=== PATIENT | female | born 1980 | race African-American/Black ===

== ENCOUNTER 2016-09-02 15:55 | Emergency (ER) | payer MEDICAID ==
[~2016-09-02] VITALS: Ht 167.6 cm; Wt 78.5 kg
[2016-09-02 15:55] VITALS: BP 117/79
[~2016-09-02 15:55] MED LIST: ALBU17IN2 INH; DRIS50002 PO; ESCI10TA2 PO; FERR325T PO; GABA-279 PO; GABA300C3 PO; HUMI40KI2 SC; HYDRO50TAB PO; KEPP500T6 PO; LIDO5TD TD; LOW-TAB2 PO; MEDR5TAB3 PO; NEUR300C PO; PANT40TA2 PO; PERCOCET PO; ROBA750T4 PO; SENN1TAB2 PO; SERO400T PO; TRAZ10TA PO; XANA1TAB2 PO
[2016-09-02] MEDS ORDERED: TRAZ100T4 PO (16:37)
== END 2016-09-02 17:22 | disposition left against medical advice (07) ==
LOC: M ED 16:56
DX: M54.9 Dorsalgia, unspecified (principal); Z88.5 Allergy status to narcotic agent; Z88.0 Allergy status to penicillin; Z88.2 Allergy status to sulfonamides; Z88.8 Allergy status to other drugs, medicaments and biological substances; Z79.899 Other long term (current) drug therapy; G43.909 Migraine, unspecified, not intractable, without status migrainosus; J45.909 Unspecified asthma, uncomplicated; Z87.442 Personal history of urinary calculi; Z87.440 Personal history of urinary (tract) infections; D64.9 Anemia, unspecified; M32.9 Systemic lupus erythematosus, unspecified; F32.9 Major depressive disorder, single episode, unspecified; F40.9 Phobic anxiety disorder, unspecified; N93.9 Abnormal uterine and vaginal bleeding, unspecified; Z53.29 Procedure and treatment not carried out because of patient's decision for other reasons

== ENCOUNTER → 2016-09-23 | Outpatient (CLI) | payer MEDICAID ==
[~2016-09-23] MED LIST changes: +ADDE30CA PO; +GABA-282 PO; -GABA300C3 PO; +NORC7.5T PO; +TRAZ100T4 PO
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
== END ==
LOC: M PAIN 08:40
PROVIDERS: ATTEND Nurse Practitioner Family
DX: Z09 Encounter for follow-up examination after completed treatment for conditions other than malignant neoplasm (principal); G89.29 Other chronic pain; M51.26 Other intervertebral disc displacement, lumbar region; D50.9 Iron deficiency anemia, unspecified; F31.9 Bipolar disorder, unspecified; M32.9 Systemic lupus erythematosus, unspecified; F41.9 Anxiety disorder, unspecified; G40.909 Epilepsy, unspecified, not intractable, without status epilepticus; Z88.0 Allergy status to penicillin; Z88.2 Allergy status to sulfonamides; Z91.040 Latex allergy status; Z88.6 Allergy status to analgesic agent; Z88.5 Allergy status to narcotic agent; Z79.891 Long term (current) use of opiate analgesic; Z79.899 Other long term (current) drug therapy

== ENCOUNTER 2016-09-25 17:33 | Emergency (ER) | payer MEDICAID ==
[~2016-09-25 17:33] MED LIST changes: -ADDE30CA PO; -NORC7.5T PO
[2016-09-25] MEDS ORDERED: ADDE30CA PO (17:54)
[2016-09-25] MEDS ORDERED: XANA1TAB2 PO (17:54)
[2016-09-25] MEDS ORDERED: NORC7.5T PO (17:54)
--- NOTE | 2016-09-25 18:41 | ECGEPIP ---
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
[2016-09-25 18:44] LABS: MEAN CORPUSCULAR HGB CONC 27.5 g/dl (32.0-36.5); MEAN CORPUSCULAR VOLUME 87.2 fl (80.0-96.0); RED CELL DISTRIBUTION WIDTH 14.7 % (11.5-14.5)
[2016-09-25 18:58] LABS: CONTROL LINE HCG INT CTR LINE PRESENT
[2016-09-25 19:15] LABS: ALBUMIN 3.4 GM/DL (3.2-5.2); ALBUMIN/GLOBULIN RATIO 0.72 (1.00-1.93); ALKALINE PHOSPHATASE 119 U/L (45-117); ALT/SGPT 16 U/L (12-78); ANION GAP 10 MEQ/L (8-16); AST/SGOT 14 U/L (15-37); BILIRUBIN,DIRECT < 0.1 MG/DL (0.0-0.2); BILIRUBIN,TOTAL 0.1 MG/DL (0.2-1.0); BLOOD UREA NITROGEN 10 MG/DL (7-18); CALCIUM LEVEL 8.3 MG/DL (8.5-10.1); CARBON DIOXIDE LEVEL 24 MEQ/L (21-32); CHLORIDE LEVEL 109 MEQ/L (98-107); CREATININE FOR GFR 0.75 MG/DL (0.55-1.02); GLOMERULAR FILTRATION RATE > 60.0 (>60); GLUCOSE, FASTING 90 MG/DL (70-105); POTASSIUM SERUM 3.6 MEQ/L (3.5-5.1); SODIUM LEVEL 143 MEQ/L (136-145); TOTAL PROTEIN 8.1 GM/DL (6.4-8.2)
[2016-09-25 20:36] LABS: METHADONE URINE NEGATIVE (NEGATIVE)
[2016-09-25 21:48] VITALS: BP 126/79
== END 2016-09-25 21:52 | disposition home or self-care (01) ==
LOC: M ED 18:25
DX: F19.10 Other psychoactive substance abuse, uncomplicated (principal); M32.9 Systemic lupus erythematosus, unspecified; F31.9 Bipolar disorder, unspecified; F20.9 Schizophrenia, unspecified; G40.909 Epilepsy, unspecified, not intractable, without status epilepticus; M54.9 Dorsalgia, unspecified; Z88.5 Allergy status to narcotic agent; Z91.040 Latex allergy status; Z88.0 Allergy status to penicillin; Z88.2 Allergy status to sulfonamides; Z88.8 Allergy status to other drugs, medicaments and biological substances; Z88.6 Allergy status to analgesic agent; Z79.899 Other long term (current) drug therapy; Z98.84 Bariatric surgery status; R51 Headache; J45.909 Unspecified asthma, uncomplicated
CPT/HCPCS: 36415; 80048; 80076; 80306; 84443; 84703; 85027; 93005; 93041; 99284; G0480

== ENCOUNTER 2016-11-24 09:42 | Emergency (ER) | payer MEDICAID, OTHER ==
[~2016-11-24] VITALS: Ht 167.6 cm; Wt 85.3 kg
[~2016-11-24 09:42] MED LIST changes: +ADDE30CA PO; +NORC7.5T PO
[2016-11-24] MEDS ORDERED: HYDR-4274 PO (09:54)
[2016-11-24] MEDS ORDERED: OLAN10TA2 PO (09:54)
[2016-11-24] MEDS ORDERED: TYLE325T5 PO (09:54)
[2016-11-24] MEDS ORDERED: NEUR300C PO (09:54)
[2016-11-24] MEDS ORDERED: LEXA1TAB2 PO (09:54)
[2016-11-24] MEDS ORDERED: levETIRAcetam INJection 1,000 MG in D5W 100 ML IV ONE (10:45)
--- NOTE | 2016-11-24 10:58 | REP ---
CT Head without contrast HISTORY: Trauma COMPARISON: 01/16/2016 There is no intraparenchymal hemorrhage, acute infarct, mass or midline shift. The ventricular system is normal in appearance. There is no extra cerebral collection. There is no fracture. The visualized sinuses are clear. IMPRESSION: There is no intracranial lesion. Signed by Dominic Mcclellan MD 11/24/2016 10:50 A
--- NOTE | 2016-11-24 13:11 | REP ---
CT CERVICAL SPINE WITHOUT CONTRAST: HISTORY: Trauma. There is no acute fracture or subluxation. There is no disc bulge or herniation. The spinal canal and the neural foramina are patent. The intervertebral discs are normal in height. A 10 mm hypodensity is present in the left thyroid lobe. This may represent a cyst. IMPRESSION: 1. There is no acute fracture or subluxation. 2. There is a 10 mm hypodensity in the left thyroid lobe. This may represent a cyst. Ultrasound may be helpful for further evaluation. Signed by Dominic Mcclellan MD 11/24/2016 01:34 P
[2016-11-24] MEDS ORDERED: KEPP500T6 PO (13:13)
[2016-11-24 13:20] VITALS: BP 110/71
--- NOTE | 2016-11-28 15:26 | ED PDOC ---
Post-Departure Follow-Up pt sent certitied letter re ct c spine and findings. Delia Keyes MD Nov 28, 2016 15:26
== END 2016-11-24 13:25 | disposition home or self-care (01) ==
LOC: M ED 10:36
DX: Z76.5 Malingerer [conscious simulation] (principal); G40.909 Epilepsy, unspecified, not intractable, without status epilepticus; F17.210 Nicotine dependence, cigarettes, uncomplicated; F19.10 Other psychoactive substance abuse, uncomplicated; F11.10 Opioid abuse, uncomplicated; F10.10 Alcohol abuse, uncomplicated
CPT/HCPCS: 70450; 72125; 96365; 99283; J1953

== ENCOUNTER → 2016-11-30 | Outpatient (REF) | payer OTHER ==
[~2016-11-30] MED LIST changes: +HYDR-4274 PO; +LEXA1TAB2 PO; +OLAN10TA2 PO; +TYLE325T5 PO
[2016-11-30 18:10] LABS: BASO # 0.1 K/mm3 (0.0-0.2); BASO % 1.1 % (0.0-1.0); EOS # 0.1 K/mm3 (0.0-0.50); EOS % 1.3 % (0.0-3.0); LARGE UNSTAINED CELL # 0.1 K/mm3 (0.0-0.4); LARGE UNSTAINED CELL % 1.6 % (0.0-4.0); LYMPH # 1.8 K/mm3 (1.5-4.5); LYMPH % 27.9 % (24.0-44.0); MEAN CORPUSCULAR HEMOGLOBIN 21.1 pg (27.0-33.0); MEAN CORPUSCULAR HGB CONC 28.2 g/dl (32.0-36.5); MONO # 0.2 K/mm3 (0.0-0.8); MONO % 3.6 % (0.0-5.0); NEUTROPHILS # 4.2 K/mm3 (1.8-7.7); NEUTROPHILS % 64.5 % (36.0-66.0); PLATELET COUNT, AUTOMATED 495 k/mm3 (150-450); RED CELL DISTRIBUTION WIDTH 16.2 % (11.5-14.5); WHITE BLOOD COUNT 6.5 K/mm3 (4.0-10.0)
[2016-11-30 18:35] LABS: ADD MORPHOLOGY? YES
[2016-11-30 18:36] LABS: ANISOCYTOSIS 1+; HYPOCHROMASIA 3+; MICROCYTOSIS 1+
[2016-11-30 18:53] LABS: POTASSIUM SERUM 4.3 MEQ/L (3.5-5.1)
== END ==
LOC: M LAB REF 16:18
PROVIDERS: ATTEND Surgery
DX: D50.9 Iron deficiency anemia, unspecified (principal)

== ENCOUNTER 2017-01-11 09:13 | Emergency (ER) | payer OTHER ==
[~2017-01-11] VITALS: Ht 167.6 cm; Wt 91.4 kg
[~2017-01-11 09:13] MED LIST changes: -KEPP1TAB2 PO; -RISP1TAB3 PO; -RISP2TAB3 PO
[2017-01-11] MEDS ORDERED: RISP2TAB3 PO (09:35)
[2017-01-11] MEDS ORDERED: RISP1TAB3 PO (09:35)
--- NOTE | 2017-01-11 11:04 | REP ---
Pelvis and right hip: Pelvis, single AP view: Comparison 01/14/2016. There is no pelvic fracture. There are pelvic calcifications, unchanged, likely phleboliths. Mineralization is normal. Sacroiliac articulations and hip articulations are unremarkable. Impression: No pelvic fracture. Right hip two views: There is no fracture or dislocation. Mineralization joint space are normal. No femoral head deformity. No calcifications or foreign bodies. Impression: Negative right hip. Signed by Loy Mujica MD 01/11/2017 10:55 A
[2017-01-11 11:13] VITALS: BP 118/80
[2017-01-11] MEDS ORDERED: KEPP1TAB2 PO (17:17)
== END 2017-01-11 11:32 | disposition home or self-care (01) ==
LOC: M ED 09:13 → EDBD 09:13 → M ED 11:32
DX: G40.909 Epilepsy, unspecified, not intractable, without status epilepticus (principal); S70.01XA Contusion of right hip, initial encounter; F19.10 Other psychoactive substance abuse, uncomplicated; W18.30XA Fall on same level, unspecified, initial encounter; Y92.018 Other place in single-family (private) house as the place of occurrence of the external cause; Y99.9 Unspecified external cause status; Y93.9 Activity, unspecified; Z88.0 Allergy status to penicillin; Z88.1 Allergy status to other antibiotic agents; Z88.8 Allergy status to other drugs, medicaments and biological substances; Z88.5 Allergy status to narcotic agent; Z88.6 Allergy status to analgesic agent; Z91.040 Latex allergy status; Z79.899 Other long term (current) drug therapy

== ENCOUNTER 2017-01-11 14:10 | Emergency (ER) | payer OTHER ==
[~2017-01-11] VITALS: Ht 167.6 cm; Wt 90.1 kg
[~2017-01-11 14:10] MED LIST changes: +RISP1TAB3 PO; +RISP2TAB3 PO
[2017-01-11 15:01] LABS: BASO % 0.7 % (0.0-1.0); EOS % 0.7 % (0.0-3.0); LARGE UNSTAINED CELL # 0.1 K/mm3 (0.0-0.4); LARGE UNSTAINED CELL % 1.6 % (0.0-4.0); LYMPH # 1.1 K/mm3 (1.5-4.5); LYMPH % 12.8 % (24.0-44.0); MEAN CORPUSCULAR HEMOGLOBIN 23.8 pg (27.0-33.0); MEAN CORPUSCULAR HGB CONC 29.9 g/dl (32.0-36.5); MEAN CORPUSCULAR VOLUME 79.9 fl (80.0-96.0); MONO # 0.4 K/mm3 (0.0-0.8); MONO % 5.3 % (0.0-5.0); NEUTROPHILS % 78.9 % (36.0-66.0); PLATELET COUNT, AUTOMATED 332 k/mm3 (150-450); RED CELL DISTRIBUTION WIDTH 22.3 % (11.5-14.5); WHITE BLOOD COUNT 7.6 K/mm3 (4.0-10.0)
[2017-01-11 15:05] LABS: ADD MORPHOLOGY? YES
[2017-01-11 15:19] LABS: ANION GAP 9 MEQ/L (8-16); BLOOD UREA NITROGEN 10 MG/DL (7-18); CALCIUM LEVEL 8.7 MG/DL (8.5-10.1); CARBON DIOXIDE LEVEL 22 MEQ/L (21-32); CHLORIDE LEVEL 112 MEQ/L (98-107); CREATININE FOR GFR 0.61 MG/DL (0.55-1.02); GLOMERULAR FILTRATION RATE > 60.0 (>60); GLUCOSE, FASTING 103 MG/DL (70-105); POTASSIUM SERUM 3.9 MEQ/L (3.5-5.1); SODIUM LEVEL 143 MEQ/L (136-145)
[2017-01-11 15:24] LABS: ANISOCYTOSIS 2+; HYPOCHROMASIA 1+
[2017-01-11 15:25] LABS: MICROCYTOSIS 1+
[2017-01-11] MEDS ORDERED: levETIRAcetam INJection 1,000 MG in D5W 100 ML IV ONE (16:30)
[2017-01-11] MEDS ORDERED: KEPP1TAB2 PO (17:17)
[2017-01-11 18:04] VITALS: BP 97/70
== END 2017-01-11 18:20 | disposition home or self-care (01) ==
LOC: EDBD 14:10 → M ED 14:10
DX: R56.9 Unspecified convulsions (principal); G89.29 Other chronic pain; M54.9 Dorsalgia, unspecified; F19.10 Other psychoactive substance abuse, uncomplicated; Z88.0 Allergy status to penicillin; Z88.2 Allergy status to sulfonamides; Z88.5 Allergy status to narcotic agent; Z88.6 Allergy status to analgesic agent; Z88.8 Allergy status to other drugs, medicaments and biological substances; Z91.040 Latex allergy status; Z79.899 Other long term (current) drug therapy
CPT/HCPCS: 36415; 80048; 80175; 80180; 82550; 85025; 99284; J1953

== ENCOUNTER → 2017-01-11 | Outpatient (REF) | payer OTHER ==
[~2017-01-11] MED LIST changes: -ADDE30CA PO; +ADDE30CA3 PO; +FERR1TAB8 PO; -FERR325T PO; -HYDR-4274 PO; +HYDR50TA70 PO; +KEPP1TAB PO; +KEPP1TAB2 PO; -KEPP500T6 PO; -NORC7.5T PO; +NORC7.5T35 PO; +RISP1TAB3 PO; +RISP2TAB3 PO; +TRAZ-136 PO; -TRAZ100T4 PO
[2017-01-11 14:03] LABS: POTASSIUM SERUM 4.2 MEQ/L (3.5-5.1)
== END ==
LOC: M LAB REF 13:31
PROVIDERS: ATTEND Surgery
DX: G40.89 Other seizures (principal)

== ENCOUNTER → 2017-02-01 | Outpatient (REF) | payer OTHER ==
[~2017-02-01] MED LIST changes: +KEPP1TAB2 PO
== END ==
LOC: M LAB REF 13:02
PROVIDERS: ATTEND Surgery
DX: Z51.81 Encounter for therapeutic drug level monitoring (principal); Z79.899 Other long term (current) drug therapy

== ENCOUNTER 2017-12-12 10:07 | Emergency (ER) | payer OTHER ==
[2017-12-12] MEDS: diphenhydrAMINE INJ 50MG/ML VIAL (J1200) IV (10:45)
[2017-12-12] MEDS: METOCLOPRAMIDE INJ 10MG/2ML VIAL (J2765) IV (10:45)
[2017-12-12] MEDS: NS 1,000 ML IV (10:45)
[2017-12-12] MEDS: KETOROLAC 30 MG/ML VIAL (J1885) IV (10:45)
[2017-12-12] MEDS: ONDANSETRON 4MG/2ML VIAL (J2405) IV (12:32)
== END 2017-12-12 13:00 | disposition home or self-care (01) ==
LOC: M ED 10:07
DX: S09.90XA Unspecified injury of head, initial encounter (principal); F07.81 Postconcussional syndrome; W10.9XXA Fall (on) (from) unspecified stairs and steps, initial encounter; Y92.099 Unspecified place in other non-institutional residence as the place of occurrence of the external cause; Y93.9 Activity, unspecified; Y99.9 Unspecified external cause status; F31.9 Bipolar disorder, unspecified; Z98.84 Bariatric surgery status
CPT/HCPCS: J1200

== ENCOUNTER 2018-01-27 09:45 | Emergency (ER) | payer OTHER, SELFPAY ==
[2018-01-27] MEDS: methylPREDNISolone INJ 125 MG/2 ML VIAL (J2930) IM (11:31)
[2018-01-27] MEDS: MORPHINE 10 MG/ML 1ML VIAL (J2270) IM (13:56)
== END 2018-01-27 14:57 | disposition home or self-care (01) ==
LOC: M ED 09:45
DX: M51.17 Intervertebral disc disorders with radiculopathy, lumbosacral region (principal); M51.26 Other intervertebral disc displacement, lumbar region; R56.9 Unspecified convulsions; F31.9 Bipolar disorder, unspecified; R51 Headache; J45.909 Unspecified asthma, uncomplicated; Z87.442 Personal history of urinary calculi; Z87.440 Personal history of urinary (tract) infections; Z98.84 Bariatric surgery status; Z88.5 Allergy status to narcotic agent; Z88.0 Allergy status to penicillin; Z88.2 Allergy status to sulfonamides; Z88.8 Allergy status to other drugs, medicaments and biological substances; Z91.040 Latex allergy status; Z79.899 Other long term (current) drug therapy
CPT/HCPCS: J2930

== ENCOUNTER 2018-09-10 20:07 | Emergency (ER) | payer OTHER ==
[~2018-09-10] VITALS: Ht 167.6 cm; Wt 80.9 kg
[~2018-09-10 20:07] MED LIST changes: -DRIS50002 PO; +DRIS50003 PO; +GABA-1171 PO; -GABA-279 PO; -GABA-282 PO; +GABA-843 PO; +LOW-1TAB2 PO; -LOW-TAB2 PO; +MEDR4PAK PO; -PANT40TA2 PO; +PANT40TA3 PO; -TRAZ-136 PO; +TRAZ-163 PO; +ZANA4TAB PO; +ZOFR4TAB14 PO; +[UNRECOGNIZED DRUG - CODE] PO; +[UNRECOGNIZED DRUG - OTHER] PO
[2018-09-10] MEDS ORDERED: IBUP80TA PO (20:14)
[2018-09-10] MEDS ORDERED: KEPP10002 PO (20:29)
[2018-09-10] MEDS ORDERED: CLINDAMYCIN 900 MG in APPROPRIATE DILUENT 1 EA IV ONE (20:45)
[2018-09-10] MEDS ORDERED: NS 1,000 ML IV ONE (20:45)
[2018-09-10 21:03] LABS: BASO # 0.1 10^3/uL (0.0-0.2); BASO % 0.5 % (0.0-1.0); EOS # 0.2 10^3/uL (0.0-0.50); EOS % 1.6 % (0.0-3.0); HEMATOCRIT 28.1 % (36.0-47.0); HEMOGLOBIN 7.6 g/dl (12.0-15.5); LYMPH # 1.3 10^3/uL (1.5-4.5); LYMPH % 12.6 % (24.0-44.0); MEAN CORPUSCULAR HEMOGLOBIN 19.7 pg (27.0-33.0); MEAN CORPUSCULAR VOLUME 72.8 fl (80.0-96.0); MONO % 9.5 % (0.0-5.0); NEUTROPHILS # 7.8 10^3/uL (1.8-7.7); NEUTROPHILS % 75.5 % (36.0-66.0); PLATELET COUNT, AUTOMATED 490 10^3/uL (150-450); RED BLOOD COUNT 3.86 10^6/uL (4.00-5.40); WHITE BLOOD COUNT 10.3 10^3/uL (4.0-10.0)
[2018-09-10 21:39] LABS: BLOOD UREA NITROGEN 11 MG/DL (7-18); C REACTIVE PROTEIN QUANTITATIV 0.94 MG/DL (0.00-0.30); CALCIUM LEVEL 7.7 MG/DL (8.5-10.1); CARBON DIOXIDE LEVEL 25 MEQ/L (21-32); CHLORIDE LEVEL 112 MEQ/L (98-107); CREATININE FOR GFR 0.52 MG/DL (0.55-1.30); GLOMERULAR FILTRATION RATE > 60.0 (>60); GLUCOSE, FASTING 92 MG/DL (70-100); POTASSIUM SERUM 4.1 MEQ/L (3.5-5.1); SODIUM LEVEL 141 MEQ/L (136-145)
[2018-09-10] MEDS ORDERED: ISOVUE-370 76% 125ML VIAL (Q9967 PER ML) As Ordered ONE (21:42)
[2018-09-10] MEDS ORDERED: MORPHINE 4 MG/ML 1ML VIAL/SYRINGE (J2270) IV ONE (22:00)
[2018-09-10] MEDS ORDERED: ONDANSETRON 4MG/2ML VIAL (J2405) IV ONE (22:00)
--- NOTE | 2018-09-10 22:48 | REPVR ---
EXAM: CT Maxillofacial With Contrast EXAM DATE/TIME: 09/10/2018 9:45 PM CLINICAL HISTORY: 38 years old, female; Pain; Jaw pain; Additional info: Dental abscess, left side facial swelling TECHNIQUE: Axial computed tomography images of the face with intravenous contrast. All CT scans at this facility use at least one of these dose optimization techniques: automated exposure control; mA and/or kV adjustment per patient size (includes targeted exams where dose is matched to clinical indication); or iterative reconstruction. Coronal and sagittal reformatted images were created and reviewed. CONTRAST: Contrast Material: 75 ml of ISO 370; Contrast Route: IV COMPARISON: No relevant prior studies available. FINDINGS: Orbits: No acute intraorbital abnormality. Globes are unremarkable. Sinuses: Minimal bilateral maxillary sinus mucosal thickening. Bones/joints: No acute fracture. Dental: Periodontal disease of multiple maxillary and mandibular teeth. There is buccal aspect erosion of anterior mandibular incisors and teeth #22 and 21 and tooth #19 with prominent caries involving multiple teeth. There is a large periodontal lucency around the roots of tooth #31. Lymph nodes: Borderline left submandibular nodes. Soft tissues: Soft tissue edema of the left cheek and left perimandibular soft tissues. IMPRESSION: 1. Prominent scattered periodontal disease and caries bilaterally. 2. Soft tissue edema of the left cheek and left perimandibular soft tissues with borderline left submandibular nodes consistent with inflammation or cellulitis. No definite abscess is identified although some phlegmon may be present. 3. Minimal bilateral maxillary sinus disease. Electronically signed by: Rafael Espinoza On 09/10/2018 22:47:57 PM
[2018-09-10] MEDS ORDERED: NORCO 5/325MG TABLET (BULK FOR ED) PO ONE (23:00)
[2018-09-10] MEDS ORDERED: CLEO300C2 PO (23:03)
[2018-09-10] MEDS ORDERED: NORCOTAB PO (23:03)
[2018-09-10 23:49] VITALS: BP 115/65
== END 2018-09-10 23:51 | disposition home or self-care (01) ==
LOC: M ED 20:07
DX: K04.7 Periapical abscess without sinus (principal); D50.9 Iron deficiency anemia, unspecified; J45.909 Unspecified asthma, uncomplicated; E05.90 Thyrotoxicosis, unspecified without thyrotoxic crisis or storm; G40.909 Epilepsy, unspecified, not intractable, without status epilepticus; F33.9 Major depressive disorder, recurrent, unspecified; F20.9 Schizophrenia, unspecified; F41.9 Anxiety disorder, unspecified; M32.9 Systemic lupus erythematosus, unspecified; Z79.899 Other long term (current) drug therapy; Z88.1 Allergy status to other antibiotic agents; Z88.2 Allergy status to sulfonamides; Z88.5 Allergy status to narcotic agent; Z91.040 Latex allergy status
CPT/HCPCS: 36415; 70487; 80048; 85025; 86140; 96365; 96375; 99284; J2270; J2405; Q9967

== ENCOUNTER 2018-09-21 03:23 | Emergency (ER) | payer OTHER ==
[~2018-09-21] VITALS: Ht 167.6 cm; Wt 83.0 kg
[~2018-09-21 03:23] MED LIST changes: +CLEO300C2 PO; +HYDR-3715 PO; +IBUP80TA PO; +KEPP10002 PO; +NORC1TAB8 PO; -NORC7.5T35 PO; -SENN1TAB2 PO; +SENN1TAB40 PO; +[UNRECOGNIZED DRUG - OTHER] PO; -[UNRECOGNIZED DRUG - OTHER] PO
[2018-09-21 03:27] VITALS: BP 106/62
[2018-09-21 04:22] LABS: INFLUENZA A AMPLIFICATION NEGATIVE (NEGATIVE); INFLUENZA B AMPLIFICATION NEGATIVE (NEGATIVE)
--- NOTE | 2018-09-21 08:15 | REP ---
Oral chest x-ray: Single view. History: Dyspnea and cough. Comparison radiographs are from March 18, 2016. Findings: The lungs are symmetrically aerated and clear. Heart is not enlarged. Pulmonary vasculature is not increased. No significant bony abnormality is appreciated. Impression: Negative portable chest x-ray. Electronically Signed by Odell Hopkins MD 09/21/2018 08:06 A
== END 2018-09-21 05:24 | disposition left against medical advice (07) ==
LOC: M ED 03:23
DX: Z53.21 Procedure and treatment not carried out due to patient leaving prior to being seen by health care provider (principal)

== ENCOUNTER → 2019-07-25 | Outpatient (CLI) | payer MEDICAID ==
[~2019-07-25] MED LIST changes: +HYDR1TAB33 PO; -HYDRO50TAB PO; +SENN-53 PO; -SENN1TAB40 PO; -TRAZ-163 PO; +TRAZ-257 PO; -TRAZ10TA PO; +TRAZ1TAB12 PO
== END ==
LOC: M OUTALCOH 11:10
PROVIDERS: ATTEND Psychiatry & Neurology Addiction Medicine
DX: Z13.39 Encounter for screening examination for other mental health and behavioral disorders (principal); F12.20 Cannabis dependence, uncomplicated

== ENCOUNTER 2020-08-22 04:30 | Inpatient (IN) | payer MEDICAID, OTHER ==
[~2020-08-22] VITALS: Ht 170.2 cm; Wt 68.1 kg
[2020-08-22] VITALS (10 sets, daily range): BP systolic 99–142; BP diastolic 47–86
[~2020-08-22 04:30] MED LIST changes: +ESCI10TA16 PO; -ESCI10TA2 PO; +GABA-282 PO; -GABA-843 PO; +PANT40TA29 PO; -PANT40TA3 PO; +RISP-8 PO; +RISP-9 PO; -RISP1TAB3 PO; -RISP2TAB3 PO
[2020-08-22] MEDS ORDERED: LORazepam 2 MG TAB PO ONE (05:10)
[2020-08-22 05:31] LABS: BASO # 0.1 10^3/uL (0.0-0.2); BASO % 1.5 % (0.0-1.0); EOS % 1.2 % (0.0-3.0); LYMPH # 1.4 10^3/uL (1.5-5.0); LYMPH % 41.9 % (24.0-44.0); MEAN CORPUSCULAR HEMOGLOBIN 13.7 pg (27.0-33.0); MEAN CORPUSCULAR VOLUME 59.6 fl (80.0-96.0); MONO # 0.5 10^3/uL (0.0-0.8); MONO % 14.4 % (2.0-8.0); NEUTROPHILS # 1.4 10^3/uL (1.5-8.5); NEUTROPHILS % 40.4 % (36.0-66.0); PLATELET COUNT, AUTOMATED 481 10^3/uL (150-450); RED BLOOD COUNT 3.29 10^6/uL (4.00-5.40); WHITE BLOOD COUNT 3.4 10^3/uL (4.0-10.0)
[2020-08-22 05:35] LABS: INR 1.17; PROTHROMBIN TIME 15.2 SECONDS (12.5-14.3)
[2020-08-22 05:36] LABS: HCG, SERUM QUALITATIVE NEGATIVE (NEGATIVE)
--- OUTSIDE RECORDS SUMMARY | 2020-08-22 05:37 | CCD ---
Author Author [facility] Organization [facility] Address Unknown Phone Unavailable Support Name Relationship Address Phone PATTY MINOR Next Of Kin [address] [address] MARION YOUSSEF Next Of [place] [address] [place] [address] Lyudmila Barnett Next Of Kin [address] [place] [address] Ekta Hedrick Next Of Kin [address] [place], [place] [id number] Connie Rodriguez Next Of Kin [address] [place] [address] 315 Gely Jc DDS Next Of Kin [address] [place], [place] [id number] ROSIE [place], DEPT SOLE INKER Next Of Kin [address] [place] [address] UE Next Of Kin Unknown Unavailable ELBALIZO Next Of Kin [address] [facility] [address] [place] [address] LANDY COREA Next Of Kin [address] [address] [address] Next Of Kin Unknown Unavailable LANDY COREA Next Of Kin [address] [place] [address] PAO YOUSSEF Next Of Kin [address] [place] [address] Gely Jc DDS Next Of Kin [address] [place] [address] Re-disclosure Warning The records that you are about to access may contain information from federally-assisted alcohol or drug abuse programs. If such information is present, then the following federally mandated warning applies: This information has been disclosed to you from records protected by federal confidentiality rules (42 CFR part 2). The federal rules prohibit you from making any further disclosure of this information unless further disclosure is expressly permitted by the written consent of the person to whom it pertains or as otherwise permitted by 42 CFR part 2. A general authorization for the release of medical or other information is NOT sufficient for this purpose. The Federal rules restrict any use of the information to criminally investigate or prosecute any alcohol or drug abuse patient.The records that you are about to access may contain highly sensitive health information, the redisclosure of which is protected by Article 27-F of the [facility] Public Health law. If you continue you may have access to information: Regarding HIV / AIDS; Provided by facilities licensed or operated by the [facility] Office of Mental Health; or Provided by the [facility] Office for People With Developmental Disabilities. If such information is present, then the following [facility] mandated warning applies: This information has been disclosed to you from confidential records which are protected by state law. State law prohibits you from making any further disclosure of this information without the specific written consent of the person to whom it pertains, or as otherwise permitted by law. Any unauthorized further disclosure in violation of state law may result in a fine or long term sentence or both. A general authorization for the release of medical or other information is NOT sufficient authorization for further disc losure. Insurance Providers Payer name Policy type / Coverage type Policy ID Covered libertarian ID Covered libertarian's relationship to billings Policy Billings Plan Information [facility] [id number] SP [id number] [facility] COMMUNITY PLAN [facility] [id number] SP [id number] Medicaid P [id number] S [id number] [facility](MCAID) O [id number] S [id number] SELF PAY ONLY [id number] SP [id number] [facility] COMMUNITY PLAN [facility] [id number] SP [id number] [facility]([place]ID) O [id number] S [id number] [facility] [address] SURVEILLANCE TECHNICIAN DEPT [id number] SP [id number] Medicaid P [id number] S [id number] [facility] DEPT.OF CORRECTIONAL [id number] SP [id number] [facility] [address] [address] SOLE INKER DE O [id number] S [id number] [place] SURVEILLANCE TECHNICIAN DEPT [id number] SP [id number] MEDICAID [id number] SP [id number] MEDICAID M [id number] S [id number] [place] SOLE INKER DE O [id number] S [id number] SELF PAY ONLY [id number] SP [id number] MEDICAID [id number] SP [id number] MEDICAID ABOOOOOC SP ABOOOOOC MEDICAID -O/P EMERGENCY ROOM [id number] PG[facility] [id number] SP [id number] Sliding Fee Scale P [id number] S [id number] PGBA [facility] [id number]
[2020-08-22 05:39] LABS: HEMATOCRIT 19.6 % (36.0-47.0); HEMOGLOBIN 4.5 g/dl (12.0-15.5)
[2020-08-22 06:03] LABS: ALBUMIN 3.1 GM/DL (3.2-5.2); ALT/SGPT 13 U/L (12-78); BILIRUBIN,DIRECT < 0.1 MG/DL (0.0-0.2); BILIRUBIN,TOTAL 0.1 MG/DL (0.2-1.0); BLOOD UREA NITROGEN 13 MG/DL (7-18); CALCIUM LEVEL 7.6 MG/DL (8.5-10.1); CARBON DIOXIDE LEVEL 22 MEQ/L (21-32); CHLORIDE LEVEL 113 MEQ/L (98-107); CREATININE FOR GFR 0.72 MG/DL (0.55-1.30); FERRITIN < 3 NG/ML (8-252); GLOMERULAR FILTRATION RATE > 60.0 (>58); GLUCOSE, FASTING 79 MG/DL (70-100); IRON (FE) 7 UG/DL (50-170); PERCENT SATURATION 1.8 % (13.2-45.0); POTASSIUM SERUM 3.8 MEQ/L (3.5-5.1); SODIUM LEVEL 143 MEQ/L (136-145); THYROID STIMULATING HORMONE 0.021 uIU/ML (0.358-3.740); THYROXINE (T4) 8.9 UG/DL (4.5-12.0); TOTAL IRON BINDING CAPACITY 381 UG/DL (250-450); TOTAL PROTEIN 6.4 GM/DL (6.4-8.2)
[2020-08-22] MEDS ORDERED: MAGN400T3 PO (06:09)
[2020-08-22] MEDS ORDERED: VITA-172 PO (06:09)
[2020-08-22] MEDS ORDERED: ABIL1TAB11 PO (06:09)
[2020-08-22] MEDS ORDERED: OYST1TAB PO (06:09)
[2020-08-22] MEDS ORDERED: LAMO25TA4 PO (06:09)
--- OUTSIDE RECORDS SUMMARY | 2020-08-22 06:12 | CCD ---
Author Author [facility] Organization [facility] Address Unknown Phone Unavailable Support Name Relationship Address Phone ELICIA [place] [address] IVÁN PATTY Next Of Kin [address] [address] MARION YOUSSEF Next Of Kin [address], [place] [id number] King DIAZPLyudmila Next Of Kin [address] [place] [address] Ekta Hedrick Next Of Kin [address] [place] [id number] Connie Rodriguez Next Of Kin [address] [place] [address] Gely Jc DDS Next Of Kin [address] [place], [place] [phone] ROSIE [place], DEPT PILE DRIVING TECHNICIAN Next Of Kin [address] [place] [address] UE Next Of Kin Unknown Unavailable ELBACLAUDETTEERIN Next Of Kin [address] [address] LANDY COREA Next Of Kin [address] [address] [address] Next Of Kin Unknown Unavailable LANDY COREA Next Of Kin [address] [place] [address] PAO YOUSSEF Next Of Kin [address] [place] [address] Gely Jc DDS Next Of Kin [address] [place] [address] Re-disclosure Warning The records that you are [...] is protected by Article 27-F of the [facility] Public Health law. If you continue you may have access to information: Regarding HIV / AIDS; Provided by facilities licensed or operated by the [facility] Office of Mental Health; or Provided by the [facility] Office for People With Developmental Disabilities. If such information is present, then the following [facility] mandated warning applies: This information has [...] law may result in a fine or mcfp sentence or both. A general authorization for the release of medical or other information is NOT sufficient authorization for further disc losure. Insurance Providers Payer name Policy type / Coverage type Policy ID Covered alliance party ID Covered alliance party's relationship to billings Policy Billings Plan Information [facility] COMMUNITY PLAN [facility] [id number] SP [id number] [facility] [id number] SP [id number] Medicaid P [id number] S [id number] [facility](MCAID) O [id number] S [id number] SELF PAY ONLY [id number] SP [id number] [facility] COMMUNITY PLAN [facility] [id number] SP [id number] [facility](MCAID) O [id number] S [id number] [facility] DEPT [id number] SP [id number] Medicaid P [id number] S [id number] [facility] DEPT.OF CORRECTIONAL [id number] SP [id number] [facility] PILE DRIVING TECHNICIAN DE O [id number] S [id number] [facility] COUGAR HUNTER DEPT [id number] SP [id number] MEDICAID [id number] SP [id number] MEDICAID M [id number] S [id number] [facility] PILE DRIVING TECHNICIAN DE O [id number] S [id number] SELF PAY ONLY [id number] SP [id number] MEDICAID [id number] SP [id number] MEDICAID ABOOOOOC SP ABOOOOOC MEDICAID -O/P EMERGENCY ROOM [id number] [facility] [id number] SP [id number] Sliding Fee Scale P [id number] S [id number] [facility] [id number]
[2020-08-22 06:39] LABS: FREE T4 0.97 NG/DL (0.76-1.46)
[2020-08-22 06:41] LABS: RSV AMPLIFICATION NEGATIVE (NEGATIVE)
--- NOTE | 2020-08-22 07:12 | REPVR ---
PROCEDURE INFORMATION: Exam: XR Chest Exam date and time: 08/22/2020 5:07 AM Age: 40 years old Clinical indication: Other: Dyspnea/cough TECHNIQUE: Imaging protocol: XR of the chest Views: 1 view. COMPARISON: [place] PORTABLE CHEST X-RAY 09/21/2018 3:40 AM FINDINGS: Lungs: Unremarkable. No consolidation. Pleural spaces: Unremarkable. No pleural effusion. No pneumothorax. Heart/Mediastinum: Unremarkable. No cardiomegaly. Bones/joints: Unremarkable. IMPRESSION: No evidence for acute pulmonary disease. Electronically signed by: Surinder Roth On 08/22/2020 07:12:29 AM
[2020-08-22] MEDS ORDERED: MAALOX 30 ML SUSP *UDC PO PRN (07:40)
[2020-08-22] MEDS ORDERED: MOM 30ML SUSPENSION UDC PO PRN (07:40)
--- OUTSIDE RECORDS SUMMARY | 2020-08-22 07:55 | CCD ---
Author Author [facility] Organization [facility] Address Unknown Phone Unavailable Support Name Relationship Address Phone ELICIA [place] [address] IVÁN PATTY Next Of Kin [address] [address] MARION YOUSSEF Next Of Kin [address] [place], [place] [id number] King DIAZPLyudmila Next Of Kin [address] [place] [address] Ekta Hedrick Next Of Kin [address] [place] [id number] Connie Rodriguez Next Of Kin [address] [place] [address] Gely Jc DDS Next Of Kin [address] [place], [place] [phone] ROSIE [place], DEPT PIN OR CLIP FASTENER Next Of Kin [address] [place] [address] UE Next Of Kin Unknown Unavailable ELBACLAUDETTEERIN Next Of Kin [address] [address] LANDY COREA Next Of Kin [address] [address] [address] Next Of Kin Unknown Unavailable LANDY COREA Next Of Kin [address] [place] [address] PAO YOUSSEF Next Of Kin [address] [place] [address] Gely Jc DDS Next Of Kin [address] [place] [address] Re-disclosure Warning The records that you are [...] is protected by Article 27-F of the [facility] Public Health law. If you continue you may have access to information: Regarding HIV / AIDS; Provided by facilities licensed or operated by the [facility] Office of Mental Health; or Provided by the [facility] Office for People With Developmental Disabilities. If such information is present, then the following [facility] mandated warning applies: This information has [...] law may result in a fine or usp sentence or both. A general authorization for the release of medical or other information is NOT sufficient authorization for further disc losure. Insurance Providers Payer name Policy type / Coverage type Policy ID Covered republican ID Covered republican's relationship to billings Policy Billings Plan Information [facility] COMMUNITY PLAN [facility] [place] [id number] SP [id number] [facility] [id number] SP [id number] Medicaid P [id number] S [id number] [facility](MCAID) O [id number] S [id number] SELF PAY ONLY [id number] SP [id number] [facility] COMMUNITY PLAN [facility] [place] [id number] SP [id number] [facility](MCAID) O [id number] S [id number] [facility] DEPT [id number] SP [id number] Medicaid P [id number] S [id number] [facility] DEPT.OF CORRECTIONAL [id number] SP [id number] [facility] PIN OR CLIP FASTENER DE O [id number] S [id number] [facility] 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
--- NOTE | 2020-08-22 09:55 | REP ---
INDICATION: Transvaginal ultrasound for heavy menstrual bleeding. COMPARISON: Comparison pelvic sonography May 18, 2016.. TECHNIQUE: Transabdominal and transvaginal scanning were performed. FINDINGS: Uterine dimensions are normal at 8.0 x 4.5 x 5.3 cm. Endometrial echo is 1.1 cm thick and centrally placed. No free fluid is seen in the cul-de-sac. Visualized bladder rae are smooth. There is submucosal fibroid measuring 2.0 x 1.9 x 1.3 cm anteriorly. Uterine texture is somewhat heterogeneous. The right ovary has dimensions of 3.1 x 2.1 x 2.0 cm. It's Doppler flow is normal with a resistive index of 0.71. The left ovary dimensions are normal as well at 2.5 x 1.4 x 2.4 cm. It's Doppler flow was normal with resistive index of 0.58. IMPRESSION: Evidence of a small sub the mucosal fibroid. Otherwise negative.. <Electronically signed by Jason Hopkins > 08/22/20 0911
[2020-08-22] MEDS: ENOXAPARIN 40MG/0.4ML SYRINGE (J1650 PER 10MG) SC SCH (11:00)
[2020-08-22] MEDS: ACETAMINOPHEN TAB 650MG DOSE (2X325MG) PO PRN ×2 (11:00→20:41)
[2020-08-22] MEDS: DOCUSATE SODIUM 100MG CAPSULE PO SCH ×2 (11:00→20:41)
--- NOTE | 2020-08-22 13:41 | HPEPDOC ---
[facility] Medical History & Physical Date of Admission Aug 22, 2020 Date of Service: Aug 22, 2020 History and Physical CHIEF COMPLAINT: Weakness HISTORY OF PRESENT ILLNESS: This is a 40-year-old female history of asthma epilepsy, bipolar and schizophrenia who presents to the hospital due to progressive weakness associated with shortness of breath at home. She is noticed this over the past few days and it's gotten worse. She denies fevers but says she has chills. Patient denies blood in stool or black stools or throwing up blood or blood in the urine but she does endorse heavy menstrual bleeding for many years she says she gets her menstrual cycle that lasts about 5 days with heavy bleeding and clots. LMP August 09 no active bleeding. Denies chest pain or palpitations. In the emergency department patient was found to have a hemoglobin of 4.5. Blood consent was obtained and transfusion of one unit of blood was started. Stool guaiac in the ED was negative. PAST MEDICAL/SURGICAL HISTORY: Asthma ? Lupus not on any medications has a eyelet riveter in [place] Epilepsy on [facility] Bipolar and schizophrenia SOCIAL HISTORY: Endorses drinking alcohol socially Denies tobacco use Uses illicit drugs assist cannabis and andre, last use yesterday FAMILY HISTORY: Reviewed and none contributory to this admission ALLERGIES: Please see below. REVIEW OF SYSTEMS: 10 point review of systems complete all negative otherwise stated in HPI HOME MEDICATIONS: Please see below. PHYSICAL EXAMINATION: Constitutional: Awake and alert, in no apparent distress, no conversational dyspnea ENT: Sclera are clear. Mucosa is moist. Respiratory: Lungs CTA bilaterally. No respiratory distress. No use of accessory muscles. Cardiovascular: RRR S1 and S2 are normal, no murmur Gastrointestinal: Abdomen is soft, non distended, non tender, BS present. Musculoskeletal: No lower extremity edema. Neurologic: No focal neurological deficit. Mental Status: A&O x3, normal affect Skin: Warm, dry LABORATORY DATA: See below. IMAGING: See chart MICROBIOLOGY: Please see below. ASSESSMENT/PLAN 40-year-old female history of asthma epilepsy, bipolar and schizophrenia who presents to the hospital due to progressive weakness associated with shortness of breath at home to be severely anemic hemoglobin 4.5 on admission suspected progressively chronic do to be secondary to heavy menstrual bleeding. # Symptomatically anemia: At this time it's most likely to be secondary to heavy menstrual bleeding. I discussed this with Dr. Nguyen software development analyst, since patient not actively bleeding does not need to be followed by gynecology and patient she will see her in the clinic. Fu transvaginal ultrasound. Fu TIBC/ferritin/folate/b12b12. Currently receiving 3 units of blood. Repeat H&H after blood transfusion. Patient was found to be febrile at the time of her second unit of blood unclear if this is a transfusion reaction I ordered another set of blood cultures. # Epilepsy: Says she takes keppra, pharmacy couldn't confirm this, patient says is unsure if she still takes it. I've held off on it for now. # Bipolar and schizophrenia: Continue Lamictal and Abilify # Lupus: not on any medications has a eyelet riveter in [place] # DVT prophylaxis: SCD A Yousef Hospitalist Vital Signs Vital Signs Date Time Temp Pulse Resp B/P (MAP) Pulse Ox O2 Delivery O2 Flow Rate FiO2 08/22/20 10:51 101.2 100 17 120/76 99 Room Air 08/22/20 07:15 2.0 Laboratory Data Labs 24H Laboratory Tests 2 08/22/20 05:07: Immature Granulocyte % (Auto) 0.6, Neutrophils (%) (Auto) 40.4, Lymphocytes (%) (Auto) 41.9, Monocytes (%) (Auto) 14.4H, Eosinophils (%) (Auto) 1.2, Basophils (%) (Auto) 1.5H, Neutrophils # (Auto) 1.4L, Lymphocytes # (Auto) 1.4L, Monocytes # (Auto) 0.5, Eosinophils # (Auto) 0.0, Basophils # (Auto) 0.1, Reticulocyte # (auto) 22.6, Nucleated Red Blood Cells % (auto) 0.0, Percent Reticulocyte Count 0.6, Reticulocyte Hemoglobin Equivalent 12.1L, Prothrombin Time 15.2H, Prothromb Time International Ratio 1.17, Anion Gap 8, Glomerular Filtration Rate > 60.0, Calcium Level 7.6L, Iron Level 7L, Total Iron Binding Capacity 381, Transferrin % Saturation 1.8L, Ferritin < 3L, Total Bilirubin 0.1L, Direct Bilirubin < 0.1, Aspartate Amino Transf (AST/SGOT) 9, Alanine Aminotransferase (ALT/SGPT) 13, Alkaline Phosphatase 91, Total Protein 6.4, Albumin 3.1L, Albumin/Globulin Ratio 0.9L, Thyroid Stimulating Hormone (TSH) 0.021L, Free Thyroxine 0.97, Thyroxine (T4) 8.9, Human Chorionic Gonadotropin, Qual NEGATIVE 08/22/20 05:55: Coronavirus (COVID-19)(PCR) NEGATIVE, Influenza Type A (RT-PCR) NEGATIVE, Influenza Type B (RT-PCR) NEGATIVE, Respiratory Syncytial Virus (PCR) NEGATIVE CBC/BMP Laboratory Tests 08/22/20 05:07 Microbiology Microbiology 08/22/20 Blood Culture, Received Pending Home Medications Scheduled Aripiprazole (Abilify) 5 Mg Tablet, 5 MG PO QHS HAS NOT STARTED YET Ascorbic Acid (Vitamin C) 500 Mg Tablet, 1 TAB PO DAILY Calcium Carbonate (Calcium) 500 Mg Tablet, 500 MG PO DAILY Cyanocobalamin (Vitamin B-12) (Vitamin B-12) 500 Mcg Tablet, 500 MCG PO DAILY Ferrous Sulfate (Ferrous Sulfate) 325 Mg Tablet.dr, 1 TAB PO DAILY Lamotrigine (Lamotrigine) 25 Mg Tablet, 25 MG PO BID Magnesium Oxide (Magnesium Oxide) 400 Mg Tablet, 400 MG PO DAILY Allergies Coded Allergies: Sulfa (Sulfonamide Antibiotics) (Verified Allergy, Severe, RASH, HIVES, SWELLING, 08/22/20) codeine (Verified Allergy, Severe, RASH , DIFF BREATHING, 08/22/20) Penicillins (Verified Allergy, Unknown, RASH??, 08/22/20) latex (Verified Allergy, Unknown, RASH , SOB, 08/22/20) tramadol (Verified Allergy, Unknown, RASH, HIVES, STOMACHE BLEEDING, 08/22/20) NSAIDS (Non-Steroidal Anti-Inflamma (Verified Adverse Reaction, Severe, STOMACHE BLEEDING, 08/22/20) A-FIB/CHADSVASC A-FIB History Current/History of A-Fib/PAF?: No VICTOR M LOONEY MD Aug 22, 2020 12:38
[2020-08-22] MEDS: CYANOCOBALAMIN 500 MCG TAB PO SCH (15:30)
[2020-08-22] MEDS: OYSTER SHELL CALCIUM 500 MG TAB PO SCH (15:30)
[2020-08-22] MEDS: MAGNESIUM OXIDE 400MG TAB (MAG-OX) PO SCH (15:30)
[2020-08-22] MEDS: lamoTRIgine 25MG TAB PO SCH ×2 (16:10→20:41)
--- NOTE | 2020-08-22 17:01 | ECGEPIP ---
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
[2020-08-23] VITALS (10 sets, daily range): BP systolic 91–111; BP diastolic 49–69
[2020-08-23 07:15] LABS: ALBUMIN 2.8 GM/DL (3.2-5.2); ALT/SGPT 11 U/L (12-78); BILIRUBIN,TOTAL 0.5 MG/DL (0.2-1.0); BLOOD UREA NITROGEN 7 MG/DL (7-18); CALCIUM LEVEL 7.7 MG/DL (8.5-10.1); CARBON DIOXIDE LEVEL 22 MEQ/L (21-32); CHLORIDE LEVEL 114 MEQ/L (98-107); CREATININE FOR GFR 0.48 MG/DL (0.55-1.30); GLOMERULAR FILTRATION RATE > 60.0 (>58); GLUCOSE, FASTING 87 MG/DL (70-100); MAGNESIUM LEVEL 2.3 MG/DL (1.8-2.4); POTASSIUM SERUM 3.7 MEQ/L (3.5-5.1); SODIUM LEVEL 142 MEQ/L (136-145); TOTAL PROTEIN 5.9 GM/DL (6.4-8.2)
[2020-08-23] MEDS: DOCUSATE SODIUM 100MG CAPSULE PO SCH ×3 (09:00→20:35)
[2020-08-23] MEDS: ENOXAPARIN 40MG/0.4ML SYRINGE (J1650 PER 10MG) SC SCH (09:00)
[2020-08-23] MEDS: MAGNESIUM OXIDE 400MG TAB (MAG-OX) PO SCH (09:35)
[2020-08-23] MEDS: CYANOCOBALAMIN 500 MCG TAB PO SCH (09:35)
[2020-08-23] MEDS: OYSTER SHELL CALCIUM 500 MG TAB PO SCH (09:36)
[2020-08-23] MEDS: lamoTRIgine 25MG TAB PO SCH ×2 (09:36→20:35)
[2020-08-23 16:11] LABS: HEMATOCRIT 28.7 % (36.0-47.0); MEAN CORPUSCULAR HEMOGLOBIN 17.9 pg (27.0-33.0); MEAN CORPUSCULAR HGB CONC 25.8 g/dl (32.0-36.5); MEAN CORPUSCULAR VOLUME 69.3 fl (80.0-96.0); PLATELET COUNT, AUTOMATED 387 10^3/uL (150-450); RED BLOOD COUNT 4.14 10^6/uL (4.00-5.40); WHITE BLOOD COUNT 4.8 10^3/uL (4.0-10.0)
[2020-08-23 16:14] LABS: HEMOGLOBIN 7.4 g/dl (12.0-15.5)
[2020-08-23 16:28] LABS: HEMATOCRIT 28.8 % (36.0-47.0); HEMOGLOBIN 7.6 g/dl (12.0-15.5)
--- NOTE | 2020-08-23 18:24 | IPNPDOC ---
Text Note Date of Service The patient was seen on 08/23/20. NOTE Hospitalist Progress Note Subjective: She reports that she is feeling better today, although she still is feeling somewhat fatigued, and gets short of breath with any sort of exertion. She does not have any active bleeding at this time. Otherwise, the remainder of her review of systems is negative. Objective: General: Awake, alert, oriented 3. Not in any acute distress. HEENT: Head normocephalic, atraumatic, sclera are nonicteric. Hearing is grossly intact to conversation. Respiratory: Clear to auscultation bilaterally with no wheezes, rales, or rhonchi. Cardiovascular: Regular rate and rhythm, with no rubs, gallops, or murmur. Abdomen: Soft, nontender, nondistended, no hepatosplenomegaly appreciated. Bowel sounds present. Extremities: 2+ pulses in the radial and dorsalis pedis bilaterally. No evidence of clubbing or cyanosis. Assessment: -Symptomatic anemia Most likely secondary to heavy menstrual bleeding. The patient reports that she has have a blood transfusion approximately once per year, and her hemoglobin is typically around 6-7, her 4.5 upon admission is the lowest it has ever been. Repeat H&H this morning, and this afternoon have remained stable at 7.4 and 7.6 respectively. All of this would indicate that it is most likely a very slow bleed, recommend follow-up evaluation with PLATING OPERATOR as an outpatient. -Epilepsy Continue home dose of Keppra -Bipolar and schizophrenia Continue home dose of Lamictal and Abilify -Lupus Is not on any home medications, apparently follows with a jammer hooker in [place] -DVT prophylaxis And due to risk of active bleeding this will be achieved with teds Dispo: Likely d/c tomorrow if H/H is still stable. Will need new PCP as her most recent one is now moved/gone. VS,Juanpablo, I+O VS, Audibone, I+O Laboratory Tests 08/23/20 06:20 08/23/20 06:22 08/23/20 16:15 Vital Signs Date Time Temp Pulse Resp B/P (MAP) Pulse Ox O2 Delivery O2 Flow Rate FiO2 08/23/20 14:33 99.5 90 20 104/67 (79) 98 Room Air 08/22/20 07:15 2.0 I&O- Last 24 Hours up to 6 AM 08/23/20 06:00 Intake Total 0 ml Output Total 0 ml Balance 2040 ml BRIE LEMOS DO Aug 23, 2020 18:24
[2020-08-24 06:00] VITALS: BP 116/71
[2020-08-24 06:29] LABS: HEMATOCRIT 30.1 % (36.0-47.0); HEMOGLOBIN 7.9 g/dl (12.0-15.5); MEAN CORPUSCULAR HEMOGLOBIN 17.9 pg (27.0-33.0); MEAN CORPUSCULAR HGB CONC 26.2 g/dl (32.0-36.5); MEAN CORPUSCULAR VOLUME 68.3 fl (80.0-96.0); PLATELET COUNT, AUTOMATED 358 10^3/uL (150-450); RED BLOOD COUNT 4.41 10^6/uL (4.00-5.40); WHITE BLOOD COUNT 6.7 10^3/uL (4.0-10.0)
[2020-08-24] MEDS ORDERED: FERR325T3 PO (08:16)
[2020-08-24] MEDS: DOCUSATE SODIUM 100MG CAPSULE PO SCH (08:56)
[2020-08-24] MEDS: CYANOCOBALAMIN 500 MCG TAB PO SCH (08:57)
[2020-08-24] MEDS: OYSTER SHELL CALCIUM 500 MG TAB PO SCH (08:57)
[2020-08-24] MEDS: MAGNESIUM OXIDE 400MG TAB (MAG-OX) PO SCH (08:57)
[2020-08-24] MEDS: lamoTRIgine 25MG TAB PO SCH (08:58)
[2020-08-24] MEDS ORDERED: VITA-158 PO (09:04)
--- NOTE | 2020-08-24 17:37 | DS.PDOC ---
Discharge Summary General Date of Admission Aug 22, 2020 at 07:39 Date of Discharge 08/24/2020 Discharge Summary PRIMARY CARE PHYSICIAN: She no longer has a primary care physician, and that today is a Tuesday therefore doctors offices are closed. We will try to get her established with a new PCP, perhaps at the [facility]. ATTENDING AT TIME OF DISCHARGE: Dr. Brie Lemos, DO DISCHARGE DIAGNOS(E)S: Significant symptomatic microcytic anemia Iron deficiency Epilepsy Bipolar Schizophrenia Lupus HPI & HOSPITAL COURSE: Patient presented to the hospital with progressive weakness and shortness of breath at home that had been occurring for at least a few days prior to admission. She states that this occurs approximately once per year, and that she requires blood transfusion. She denies any blood in her stool, black stools, blood in her urine, or hematemesis, but that she does mention that she has had very heavy menstrual bleeding for many years, her cycle usually lasts about 5 days with heavy bleeding and clots. It is suspected that this is the cause of her anemia at this time. While inpatient she was found to have iron deficiency with a microcytic anemia, and she had a hemoglobin of 4.5 on admission which also within itself to a more chronic issue. She was transfused 3 units of blood, and her hemoglobin improved to 7.4 the following day, and now it is at 7.9 on the day of discharge. She is feeling significantly better at this time, and has no signs of active bleeding. She certainly appears stable for discharge at this time, but it is strongly recommended that she have close outpatient follow-up. PHYSICAL EXAMINATION ON DISCHARGE: GENERAL: Awake, alert, oriented 3. She is in no acute distress. CARDIOVASCULAR EXAMINATION: Regular rate and rhythm, with no rubs, gallops, or murmur. RESPIRATORY EXAMINATION: Clear to auscultation bilaterally with no wheezes, rales, or rhonchi. ABDOMINAL EXAMINATION: Soft, nontender, nondistended. Bowel sounds present. EXTREMITIES: No clubbing or edema noted. 2+ pulses in the radial bilaterally. DISPOSITION: Home DISCHARGE INSTRUCTIONS: Follow-up with primary care provider within the next 7-10 days. Diet as tolerated. Activity as tolerated. If symptoms return, or if you experience worsening of your symptoms, please call your doctor or return to the emergency department. DISCHARGE MEDICATIONS: No changes were made in her usual home medications for her chronic conditions She was started on ferrous sulfate 325 mg daily, and also started on vitamin C supplementation as this may theoretically help with absorption. ITEMS THAT NEED OUTPATIENT FOLLOWUP: Recommend repeat CBC within 1-2 weeks, and close follow-up regarding anemia workup and treatment. Also recommend eval regarding heavy menstrual bleeding by her DATA COMMUNICATIONS ANALYST. Vital Signs/I&Os Vital Signs Date Time Temp Pulse Resp B/P (MAP) Pulse Ox O2 Delivery O2 Flow Rate FiO2 08/24/20 06:00 98.9 66 18 116/71 (86) 99 Room Air 08/22/20 07:15 2.0 I&O- Last 24 Hours up to 6 AM 08/24/20 05:59 Intake Total 1320 ml Output Total 0 ml Balance 1320 ml Laboratory Data Labs 24H Laboratory Tests 2 08/24/20 05:46: Nucleated Red Blood Cells % (auto) 0.0 CBC/BMP Laboratory Tests 08/24/20 05:46 Microbiology Microbiology 08/22/20 Blood Culture - Preliminary, Resulted No Growth after 48 hours. All Specime... 08/22/20 Blood Culture - Preliminary, Resulted No Growth after 48 hours. All Specime... 08/22/20 Blood Culture - Preliminary, Resulted No Growth after 48 hours. All Specime... Discharge Medications Scheduled Aripiprazole (Abilify) 5 Mg Tablet, 5 MG PO QHS, (Reported) HAS NOT STARTED YET Ascorbic Acid (Vitamin C) 500 Mg Tablet, 1 TAB PO DAILY Calcium Carbonate (Calcium) 500 Mg Tablet, 500 MG PO DAILY, (Reported) Cyanocobalamin (Vitamin B-12) (Vitamin B-12) 500 Mcg Tablet, 500 MCG PO DAILY, (Reported) Ferrous Sulfate (Ferrous Sulfate) 325 Mg Tablet.dr, 1 TAB PO DAILY Lamotrigine (Lamotrigine) 25 Mg Tablet, 25 MG PO BID, (Reported) Magnesium Oxide (Magnesium Oxide) 400 Mg Tablet, 400 MG PO DAILY, (Reported) Allergies Coded Allergies: Sulfa (Sulfonamide Antibiotics) (Verified Allergy, Severe, RASH, HIVES, SWELLING, 08/22/20) codeine (Verified Allergy, Severe, RASH , DIFF BREATHING, 08/22/20) Penicillins (Verified Allergy, Unknown, RASH??, 08/22/20) latex (Verified Allergy, Unknown, RASH , SOB, 08/22/20) tramadol (Verified Allergy, Unknown, RASH, HIVES, STOMACHE BLEEDING, ) NSAIDS (Non-Steroidal Anti-Inflamma (Verified Adverse Reaction, Severe, STOMACHE BLEEDING, 08/22/20) BRIE LEMOS DO Aug 24, 2020 17:37
== END 2020-08-24 10:45 | disposition home or self-care (01) | DRG 663 ==
LOC: M ED 04:30 → M ED INP 07:39 → ENRESERV 08:39 → M MSPAV 09:43 → M MS5PR 15:11
PROVIDERS: ADMIT Family Medicine; ATTEND Neuromusculoskeletal Medicine & OMM
PROC: 30233N1 Transfusion of Nonautologous Red Blood Cells into Peripheral Vein, Percutaneous Approach (ICD-10-PCS; principal; 2020-08-22)
DX: D50.0 Iron deficiency anemia secondary to blood loss (chronic) (principal); M32.9 Systemic lupus erythematosus, unspecified; F20.9 Schizophrenia, unspecified; N92.0 Excessive and frequent menstruation with regular cycle; G40.909 Epilepsy, unspecified, not intractable, without status epilepticus; J45.909 Unspecified asthma, uncomplicated; F31.9 Bipolar disorder, unspecified; Z79.899 Other long term (current) drug therapy; Z88.2 Allergy status to sulfonamides; Z88.5 Allergy status to narcotic agent; Z91.040 Latex allergy status; Z88.6 Allergy status to analgesic agent; Z88.0 Allergy status to penicillin; Z88.8 Allergy status to other drugs, medicaments and biological substances

== ENCOUNTER 2020-10-17 16:21 | Emergency (ER) | payer OTHER ==
[~2020-10-17] VITALS: Ht 170.2 cm; Wt 74.6 kg
[~2020-10-17 16:21] MED LIST changes: +ABIL1TAB11 PO; +FERR325T3 PO; +LAMO25TA4 PO; +MAGN400T3 PO; +OYST1TAB PO; +VITA-158 PO; +VITA-172 PO
[2020-10-17 16:22] VITALS: BP 110/62
[2020-10-17] MEDS ORDERED: LAMI25CH PO (16:30)
[2020-10-17] MEDS ORDERED: ABIL10TA9 PO (16:30)
--- NOTE | 2020-10-17 17:03 | ED PDOC ---
Post-Departure Follow-Up went to see patient - not in room Nidhi Scott MD Oct 17, 2020 17:03
== END 2020-10-17 17:10 | disposition home or self-care (01) ==
LOC: M ED 16:21
DX: Z53.21 Procedure and treatment not carried out due to patient leaving prior to being seen by health care provider (principal)

== ENCOUNTER 2021-02-14 13:25 | Emergency (ER) | payer OTHER ==
[~2021-02-14] VITALS: Ht 170.2 cm; Wt 82.1 kg
[~2021-02-14 13:25] MED LIST changes: +ABIL10TA9 PO; +LAMI25CH PO; -OLAN10TA2 PO; +OLAN1TAB20 PO
--- NOTE | 2021-02-14 14:23 | REP ---
INDICATION: DYSPNEA/COUGH COMPARISON: 08/22/2020 TECHNIQUE: Portable AP view of the chest FINDINGS: The mediastinum and cardiac silhouette are stable and within normal limits for portable technique. The lung nash are clear without acute consolidation, effusion, or pneumothorax. Skeletal structures are intact. IMPRESSION: No acute cardiopulmonary process appreciated. <Electronically signed by Julito Burks > 02/14/21 [id number]
[2021-02-14 14:50] LABS: BASO # 0.1 10^3/uL (0.0-0.2); BASO % 1.1 % (0.0-1.0); EOS % 0.2 % (0.0-3.0); HEMATOCRIT 30.4 % (36.0-47.0); HEMOGLOBIN 7.8 g/dl (12.0-15.5); LYMPH # 1.6 10^3/uL (1.5-5.0); LYMPH % 19.5 % (24.0-44.0); MEAN CORPUSCULAR HGB CONC 25.7 g/dl (32.0-36.5); MEAN CORPUSCULAR VOLUME 62.2 fl (80.0-96.0); MONO # 0.4 10^3/uL (0.0-0.8); MONO % 5.3 % (2.0-8.0); NEUTROPHILS % 73.7 % (36.0-66.0); PLATELET COUNT, AUTOMATED 634 10^3/uL (150-450); RED BLOOD COUNT 4.89 10^6/uL (4.00-5.40); WHITE BLOOD COUNT 8.1 10^3/uL (4.0-10.0)
[2021-02-14 15:15] LABS: ALBUMIN 3.5 GM/DL (3.2-5.2); ALT/SGPT 18 U/L (12-78); BILIRUBIN,DIRECT < 0.1 MG/DL (0.0-0.2); BILIRUBIN,TOTAL 0.2 MG/DL (0.2-1.0); BLOOD UREA NITROGEN 15 MG/DL (7-18); CALCIUM LEVEL 8.4 MG/DL (8.5-10.1); CARBON DIOXIDE LEVEL 20 MEQ/L (21-32); CHLORIDE LEVEL 114 MEQ/L (98-107); CK-MB VALUE MASS < 1.0 NG/ML (<3.6); CPK CREATINE PHOSPHOKINASE 73 U/L (26-192); CREATININE FOR GFR 0.67 MG/DL (0.55-1.30); GLOMERULAR FILTRATION RATE > 60.0 (>58); GLUCOSE, FASTING 85 MG/DL (70-100); MB/CK RELATIVE INDEX 1.37 (< OR =4); POTASSIUM SERUM 4.3 MEQ/L (3.5-5.1); SODIUM LEVEL 140 MEQ/L (136-145); TOTAL PROTEIN 7.7 GM/DL (6.4-8.2); TROPONIN I < 0.02 NG/ML (< 0.10)
[2021-02-14] MEDS ORDERED: METHOCARBAMOL 1,000 MG/10 ML VIAL (J2800) IV ONE (16:45)
[2021-02-14] MEDS ORDERED: ACETAMINOPHEN 500 MG TAB PO ONE (16:45)
[2021-02-14] MEDS ORDERED: LIDOCAINE 5% (LIDODERM) PATCH TD ONE (16:45)
[2021-02-14 17:01] LABS: FERRITIN 3 NG/ML (8-252); IRON (FE) 14 UG/DL (50-170); TOTAL IRON BINDING CAPACITY 461 UG/DL (250-450)
[2021-02-14] MEDS: ALBUTEROL 90 MCG/ACT 8GM HFA INHALER INH SCH ×3 (17:05→17:40)
[2021-02-14] MEDS ORDERED: FERR325T3 PO (19:32)
[2021-02-14] MEDS ORDERED: PROAAER10 INH (19:32)
[2021-02-14] MEDS ORDERED: COLA100C5 PO (19:32)
[2021-02-14] MEDS ORDERED: ALL10TAB2 PO (19:32)
[2021-02-14] MEDS ORDERED: METH-1165 PO (19:32)
[2021-02-14] MEDS ORDERED: MACR100C43 PO (19:33)
[2021-02-14] MEDS ORDERED: ASPE4PAD TOP (19:36)
[2021-02-14] MEDS ORDERED: NITROFURANTOIN (MACROBID) 100 MG CAP PO ONE (19:40)
[2021-02-14 20:12] VITALS: BP 155/83
[2021-02-14] MEDS ORDERED: **NOTE PATIENT COMMENT** MISC XX SCH (21:00)
--- NOTE | 2021-02-15 08:54 | ECGEPIP ---
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
== END 2021-02-14 20:18 | disposition home or self-care (01) ==
LOC: M ED 13:25
DX: D50.9 Iron deficiency anemia, unspecified (principal); N39.0 Urinary tract infection, site not specified; M54.5 Low back pain; R06.09 Other forms of dyspnea; I10 Essential (primary) hypertension; J45.909 Unspecified asthma, uncomplicated; F31.9 Bipolar disorder, unspecified; E05.90 Thyrotoxicosis, unspecified without thyrotoxic crisis or storm; G40.909 Epilepsy, unspecified, not intractable, without status epilepticus; Z79.899 Other long term (current) drug therapy; Z88.6 Allergy status to analgesic agent; Z88.0 Allergy status to penicillin; Z88.2 Allergy status to sulfonamides; Z88.5 Allergy status to narcotic agent; Z91.040 Latex allergy status
CPT/HCPCS: 71045; 80048; 80076; 81001; 82550; 82553; 82728; 83550; 85025; 85046; 85379; 87086; 93005; 93041; 94640; 94664; 94760; 96374; 99285; J2800

== ENCOUNTER 2021-02-25 15:05 | Emergency (ER) | payer OTHER ==
[~2021-02-25] VITALS: Ht 170.2 cm; Wt 86.3 kg
[~2021-02-25 15:05] MED LIST changes: +ALL10TAB2 PO; +ASPE4PAD TOP; +COLA100C5 PO; +MACR100C43 PO; -MAGN400T3 PO; +MAGN400T33 PO; +METH-1165 PO; +PROAAER10 INH
[2021-02-25 17:46] LABS: BASO # 0.1 10^3/uL (0.0-0.2); BASO % 1.2 % (0.0-1.0); EOS # 0.2 10^3/uL (0.0-0.5); EOS % 2.4 % (0.0-3.0); HEMATOCRIT 30.8 % (36.0-47.0); HEMOGLOBIN 7.6 g/dl (12.0-15.5); LYMPH # 2.5 10^3/uL (1.5-5.0); LYMPH % 37.3 % (24.0-44.0); MEAN CORPUSCULAR HEMOGLOBIN 16.1 pg (27.0-33.0); MEAN CORPUSCULAR HGB CONC 24.7 g/dl (32.0-36.5); MEAN CORPUSCULAR VOLUME 65.3 fl (80.0-96.0); MONO # 0.4 10^3/uL (0.0-0.8); MONO % 5.7 % (2.0-8.0); NEUTROPHILS # 3.6 10^3/uL (1.5-8.5); NEUTROPHILS % 53.3 % (36.0-66.0); PLATELET COUNT, AUTOMATED 659 10^3/uL (150-450); RED BLOOD COUNT 4.72 10^6/uL (4.00-5.40); WHITE BLOOD COUNT 6.7 10^3/uL (4.0-10.0)
[2021-02-25 18:23] LABS: BLOOD UREA NITROGEN 12 MG/DL (7-18); CALCIUM LEVEL 8.2 MG/DL (8.5-10.1); CARBON DIOXIDE LEVEL 18 MEQ/L (21-32); CHLORIDE LEVEL 116 MEQ/L (98-107); CREATININE FOR GFR 0.57 MG/DL (0.55-1.30); GLOMERULAR FILTRATION RATE > 60.0 (>58); GLUCOSE, FASTING 85 MG/DL (70-100); POTASSIUM SERUM 4.4 MEQ/L (3.5-5.1); SODIUM LEVEL 136 MEQ/L (136-145)
[2021-02-25 19:09] VITALS: BP 110/70
[2021-02-25 19:41] LABS: PERCENT SATURATION 2.8 % (13.2-45.0)
[2021-02-25 20:14] LABS: FOLATE 10.1 NG/ML (>5.4)
[2021-07-07] MEDS ORDERED: OLAN7.5T8 (13:45)
[2021-07-07] MEDS ORDERED: BUPR150T12 (13:45)
== END 2021-02-25 21:02 | disposition home or self-care (01) ==
LOC: M ED 15:05
DX: D50.9 Iron deficiency anemia, unspecified (principal); F41.9 Anxiety disorder, unspecified; F20.9 Schizophrenia, unspecified; F31.89 Other bipolar disorder; M32.9 Systemic lupus erythematosus, unspecified; G40.909 Epilepsy, unspecified, not intractable, without status epilepticus; G43.909 Migraine, unspecified, not intractable, without status migrainosus; J45.909 Unspecified asthma, uncomplicated; Z87.442 Personal history of urinary calculi; E03.9 Hypothyroidism, unspecified; M54.5 Low back pain; Z98.84 Bariatric surgery status; F12.10 Cannabis abuse, uncomplicated; Z79.899 Other long term (current) drug therapy; Z88.6 Allergy status to analgesic agent; Z88.0 Allergy status to penicillin; Z88.2 Allergy status to sulfonamides; Z88.5 Allergy status to narcotic agent; Z91.040 Latex allergy status

== ENCOUNTER 2021-07-29 09:54 | Emergency (ER) | payer OTHER ==
[~2021-07-29] VITALS: Ht 177.8 cm; Wt 113.6 kg
[~2021-07-29 09:54] MED LIST changes: +BUPR150T12; +OLAN7.5T8
[2021-07-29 10:34] LABS: HEMATOCRIT 38.4 % (36.0-47.0); HEMOGLOBIN 12.2 g/dl (12.0-15.5); MEAN CORPUSCULAR HEMOGLOBIN 25.8 pg (27.0-33.0); MEAN CORPUSCULAR HGB CONC 31.8 g/dl (32.0-36.5); MEAN CORPUSCULAR VOLUME 81.4 fl (80.0-96.0); PLATELET COUNT, AUTOMATED 346 10^3/uL (150-450); RED BLOOD COUNT 4.72 10^6/uL (4.00-5.40); WHITE BLOOD COUNT 15.6 10^3/uL (4.0-10.0)
[2021-07-29] MEDS ORDERED: LAMO150T3 PO (10:44)
[2021-07-29] MEDS ORDERED: BUPR300T92 PO (10:44)
[2021-07-29] MEDS ORDERED: OLAN15TA13 PO (10:44)
[2021-07-29] MEDS ORDERED: NALT50TA4 PO (10:44)
[2021-07-29 11:07] LABS: HCG, SERUM QUALITATIVE NEGATIVE (NEGATIVE)
[2021-07-29 11:56] LABS: AMPHETAMINES LEVEL URINE NEGATIVE (NEGATIVE); BARBITURATES URINE NEGATIVE (NEGATIVE); BENZODIAZEPINES URINE NEGATIVE (NEGATIVE); CANNABINOIDS URINE NEGATIVE (NEGATIVE); COCAINE METABOLITE URINE NEGATIVE (NEGATIVE); METHADONE URINE NEGATIVE (NEGATIVE); OPIATES URINE NEGATIVE (NEGATIVE); PHENCYCLIDINE URINE NEGATIVE (NEGATIVE)
[2021-07-29 12:03] LABS: ACETAMINOPHEN LEVEL < 2.0 UG/ML (10.0-30.0); ALBUMIN 2.6 GM/DL (3.2-5.2); ALT/SGPT 16 U/L (12-78); BILIRUBIN,DIRECT 0.3 MG/DL (0.0-0.2); BILIRUBIN,TOTAL 0.3 MG/DL (0.2-1.0); BLOOD UREA NITROGEN 13 MG/DL (7-18); CALCIUM LEVEL 8.1 MG/DL (8.5-10.1); CARBON DIOXIDE LEVEL 22 MEQ/L (21-32); CHLORIDE LEVEL 106 MEQ/L (98-107); CREATININE FOR GFR 1.07 MG/DL (0.55-1.30); ETHYL ALCOHOL (ETHANOL) < 0.003 % (0.000-0.010); GLOMERULAR FILTRATION RATE > 60.0 (>58); GLUCOSE, FASTING 94 MG/DL (70-100); POTASSIUM SERUM 3.7 MEQ/L (3.5-5.1); SALICYLATE LEVEL < 1.7 MG/DL (5.0-30.0); SODIUM LEVEL 135 MEQ/L (136-145); THYROID STIMULATING HORMONE 0.063 uIU/ML (0.358-3.740); TOTAL PROTEIN 6.7 GM/DL (6.4-8.2)
[2021-07-29 13:45] VITALS: BP 132/75
[2021-07-30] MEDS ORDERED: LAMI1TAB8 PO (15:55)
[2021-07-30] MEDS ORDERED: NALT50TA4 PO (15:55)
== END 2021-07-29 13:49 | disposition home or self-care (01) ==
LOC: M ED 09:54
DX: F31.9 Bipolar disorder, unspecified (principal); D64.9 Anemia, unspecified; Z98.84 Bariatric surgery status; Z79.899 Other long term (current) drug therapy; Z88.6 Allergy status to analgesic agent; Z88.0 Allergy status to penicillin; Z88.2 Allergy status to sulfonamides; Z88.5 Allergy status to narcotic agent; Z91.040 Latex allergy status

== ENCOUNTER 2021-07-30 07:36 | Inpatient (IN) | payer OTHER ==
[~2021-07-30] VITALS: Ht 170.2 cm; Wt 93.5 kg
[~2021-07-30 07:36] MED LIST changes: +BUPR300T92 PO; +LAMO150T3 PO; +NALT50TA4 PO; +OLAN15TA13 PO
[2021-07-30] MEDS ORDERED: buPROPion **XL** TABLET 150MG (WELLBUTRIN XL) PO SCH (09:00)
[2021-07-30 10:57] LABS: HEMATOCRIT 35.7 % (36.0-47.0); HEMOGLOBIN 11.4 g/dl (12.0-15.5); MEAN CORPUSCULAR HEMOGLOBIN 26.2 pg (27.0-33.0); MEAN CORPUSCULAR HGB CONC 31.9 g/dl (32.0-36.5); MEAN CORPUSCULAR VOLUME 82.1 fl (80.0-96.0); PLATELET COUNT, AUTOMATED 371 10^3/uL (150-450); RED BLOOD COUNT 4.35 10^6/uL (4.00-5.40); WHITE BLOOD COUNT 20.6 10^3/uL (4.0-10.0)
[2021-07-30 11:20] LABS: HCG, SERUM QUALITATIVE NEGATIVE (NEGATIVE)
[2021-07-30 11:27] LABS: ACETAMINOPHEN LEVEL < 2.0 UG/ML (10.0-30.0); ALBUMIN 2.5 GM/DL (3.2-5.2); ALT/SGPT 17 U/L (12-78); BILIRUBIN,DIRECT 0.3 MG/DL (0.0-0.2); BILIRUBIN,TOTAL 0.3 MG/DL (0.2-1.0); BLOOD UREA NITROGEN 14 MG/DL (7-18); CALCIUM LEVEL 7.9 MG/DL (8.5-10.1); CARBON DIOXIDE LEVEL 21 MEQ/L (21-32); CHLORIDE LEVEL 106 MEQ/L (98-107); ETHYL ALCOHOL (ETHANOL) < 0.003 % (0.000-0.010); GLOMERULAR FILTRATION RATE > 60.0 (>58); GLUCOSE, FASTING 110 MG/DL (70-100); POTASSIUM SERUM 3.5 MEQ/L (3.5-5.1); SALICYLATE LEVEL 1.8 MG/DL (5.0-30.0); SODIUM LEVEL 135 MEQ/L (136-145); THYROID STIMULATING HORMONE 0.055 uIU/ML (0.358-3.740); TOTAL PROTEIN 6.9 GM/DL (6.4-8.2)
[2021-07-30 11:42] LABS: AMPHETAMINES LEVEL URINE NEGATIVE (NEGATIVE); BARBITURATES URINE NEGATIVE (NEGATIVE); BENZODIAZEPINES URINE NEGATIVE (NEGATIVE); CANNABINOIDS URINE NEGATIVE (NEGATIVE); COCAINE METABOLITE URINE NEGATIVE (NEGATIVE); METHADONE URINE NEGATIVE (NEGATIVE); OPIATES URINE NEGATIVE (NEGATIVE); PHENCYCLIDINE URINE NEGATIVE (NEGATIVE)
[2021-07-30 12:12] LABS: RSV AMPLIFICATION NEGATIVE (NEGATIVE)
[2021-07-30 13:22] LABS: BASO # 0.1 10^3/uL (0.0-0.2); BASO % 0.3 % (0.0-1.0); LYMPH # 1.3 10^3/uL (1.5-5.0); LYMPH % 6.4 % (24.0-44.0); MONO % 17.6 % (2.0-8.0); NEUTROPHILS # 15.3 10^3/uL (1.5-8.5); NEUTROPHILS % 75.2 % (36.0-66.0)
[2021-07-30 13:23] LABS: MONO # 3.6 10^3/uL (0.0-0.8)
[2021-07-30 13:53] LABS: FREE T4 2.02 NG/DL (0.76-1.46)
[2021-07-30] MEDS ORDERED: HOME MED LIST COMPLETE! XX SCH (15:45)
[2021-07-30] MEDS ORDERED: NALT50TA4 PO (15:55)
[2021-07-30] MEDS ORDERED: LAMI1TAB8 PO (15:55)
[2021-07-30] MEDS ORDERED: lamoTRIgine 100MG TAB PO ONE (16:05)
[2021-07-30] MEDS: buPROPion **XL** TABLET 150MG (WELLBUTRIN XL) PO SCH (16:37)
[2021-07-30] MEDS ORDERED: PROPRANOLOL 20 MG TAB PO ONE (16:40)
[2021-07-30 17:14] LABS: FREE T3 3.2 PG/ML (2.2-4.0)
[2021-07-30] MEDS ORDERED: ACETAMINOPHEN TAB 650MG DOSE (2X325MG) PO PRN (17:30)
[2021-07-30] MEDS ORDERED: OLANZapine 5 MG TAB PO ONE (21:00)
[2021-07-30 22:35] VITALS: BP 119/81
[2021-07-30] MEDS: NALTREXONE 50 MG TAB PO SCH (22:57)
[2021-07-31 05:48] VITALS: BP 124/77
[2021-07-31 07:28] LABS: HEMATOCRIT 34.9 % (36.0-47.0); MEAN CORPUSCULAR HEMOGLOBIN 26.1 pg (27.0-33.0); MEAN CORPUSCULAR HGB CONC 31.5 g/dl (32.0-36.5); MEAN CORPUSCULAR VOLUME 82.9 fl (80.0-96.0); PLATELET COUNT, AUTOMATED 377 10^3/uL (150-450); RED BLOOD COUNT 4.21 10^6/uL (4.00-5.40); WHITE BLOOD COUNT 17.6 10^3/uL (4.0-10.0)
[2021-07-31] MEDS ORDERED: PROPRANOLOL 60 MG LA CAP PO SCH (09:00)
[2021-07-31] MEDS ORDERED: ENOXAPARIN 40MG/0.4ML SYRINGE (J1650 PER 10MG) SC SCH (09:00)
[2021-07-31 09:24] VITALS: BP 124/77
[2021-07-31] MEDS: buPROPion **XL** TABLET 150MG (WELLBUTRIN XL) PO SCH (09:24)
[2021-07-31] MEDS: NALTREXONE 50 MG TAB PO SCH (09:24)
[2021-07-31] MEDS ORDERED: OLANZapine ORAL DISINTEGRATING TAB 5MG PO ONE (10:30)
[2021-07-31] MEDS ORDERED: OLANZapine ORAL DISINTEGRATING TAB 5MG PO PRN (10:45)
[2021-07-31] MEDS ORDERED: LORazepam 2 MG/ML VIAL IV PRN (10:45)
[2021-07-31] MEDS ORDERED: INDE60CA4 PO (13:27)
[2021-07-31] MEDS ORDERED: METH25TAB PO (13:27)
== END 2021-07-31 16:49 | DRG 424 ==
LOC: M ED 07:36 → M ED INP 17:30 → ENRESERV 20:20 → M MSPAV 22:36 → M PSY 07-31 15:27 → M MSPAV 07-31 15:27
PROVIDERS: ADMIT Family Medicine; ATTEND Family Medicine
DX: E05.90 Thyrotoxicosis, unspecified without thyrotoxic crisis or storm (principal); R31.9 Hematuria, unspecified; J45.909 Unspecified asthma, uncomplicated; G40.909 Epilepsy, unspecified, not intractable, without status epilepticus; F20.89 Other schizophrenia; F16.151 Hallucinogen abuse with hallucinogen-induced psychotic disorder with hallucinations; Z89.029 Acquired absence of unspecified finger(s); F31.9 Bipolar disorder, unspecified; Z79.899 Other long term (current) drug therapy; Z88.0 Allergy status to penicillin; Z88.2 Allergy status to sulfonamides; Z88.5 Allergy status to narcotic agent; Z88.6 Allergy status to analgesic agent; Z88.8 Allergy status to other drugs, medicaments and biological substances; Z91.040 Latex allergy status; Z20.822 Contact with and (suspected) exposure to COVID-19

== ENCOUNTER 2021-07-31 15:43 | Inpatient (IN) | payer MEDICAID, OTHER ==
[~2021-07-31] VITALS: Ht 170.2 cm; Wt 89.8 kg
[~2021-07-31 15:43] MED LIST changes: +INDE60CA4 PO; +LAMI1TAB8 PO; +METH25TAB PO
[2021-07-31] MEDS ORDERED: ACETAMINOPHEN TAB 650MG DOSE (2X325MG) PO PRN (15:55)
[2021-07-31] MEDS ORDERED: traZODone 50 MG TAB PO PRN (15:55)
[2021-07-31] MEDS ORDERED: MAALOX 30 ML SUSP *UDC PO PRN (15:55)
[2021-07-31] MEDS ORDERED: MOM 30ML SUSPENSION UDC PO PRN (15:55)
[2021-07-31 16:56] VITALS: BP 132/86
[2021-07-31] MEDS: OLANZapine ORAL DISINTEGRATING TAB 5MG PO PRN (17:12)
[2021-07-31] MEDS: OLANZapine 5 MG TAB PO SCH (21:22)
[2021-08-01 06:15] VITALS: BP 96/53
[2021-08-01] MEDS: PROPRANOLOL 60 MG LA CAP PO SCH (09:00)
[2021-08-01] MEDS: buPROPion **XL** TABLET 150MG (WELLBUTRIN XL) PO SCH (09:01)
[2021-08-01] MEDS: NALTREXONE 50 MG TAB PO SCH (09:01)
[2021-08-01] MEDS: OLANZapine ORAL DISINTEGRATING TAB 5MG PO PRN (09:57)
[2021-08-01] MEDS ORDERED: LORazepam 1 MG TAB PO ONE (12:30)
[2021-08-01 15:54] VITALS: BP 100/57
[2021-08-01] MEDS: OLANZapine 5 MG TAB PO SCH (20:52)
[2021-08-02 06:26] VITALS: BP 127/74
[2021-08-02 08:15] VITALS: BP 127/74
[2021-08-02] MEDS: buPROPion **XL** TABLET 150MG (WELLBUTRIN XL) PO SCH (09:56)
[2021-08-02] MEDS: NALTREXONE 50 MG TAB PO SCH (09:56)
[2021-08-02] MEDS: PROPRANOLOL 60 MG LA CAP PO SCH (10:03)
[2021-08-02] MEDS: OLANZapine 2.5MG TABLET PO SCH (13:08)
[2021-08-02 16:28] VITALS: BP 105/60
[2021-08-02] MEDS: OLANZapine 5 MG TAB PO SCH (21:31)
[2021-08-03 06:58] VITALS: BP 153/72
[2021-08-03] MEDS: NALTREXONE 50 MG TAB PO SCH (09:48)
[2021-08-03] MEDS: OLANZapine 2.5MG TABLET PO SCH (09:48)
[2021-08-03] MEDS: PROPRANOLOL 60 MG LA CAP PO SCH (09:48)
[2021-08-03] MEDS: buPROPion **XL** TABLET 150MG (WELLBUTRIN XL) PO SCH (09:48)
[2021-08-03] MEDS ORDERED: HOME MED LIST COMPLETE! XX SCH (14:35)
[2021-08-03 18:21] VITALS: BP 102/55
[2021-08-03] MEDS: OLANZapine 5 MG TAB PO SCH (21:03)
[2021-08-04 06:36] VITALS: BP 111/74
[2021-08-04] MEDS: PROPRANOLOL 60 MG LA CAP PO SCH (09:58)
[2021-08-04] MEDS: NALTREXONE 50 MG TAB PO SCH (09:58)
[2021-08-04] MEDS: buPROPion **XL** TABLET 150MG (WELLBUTRIN XL) PO SCH (09:58)
[2021-08-04] MEDS: OLANZapine 2.5MG TABLET PO SCH (09:58)
[2021-08-04 17:56] VITALS: BP 114/71
[2021-08-04] MEDS: OLANZapine 5 MG TAB PO SCH (20:56)
[2021-08-05 06:38] VITALS: BP 100/62
[2021-08-05] MEDS: PROPRANOLOL 60 MG LA CAP PO SCH (09:00)
[2021-08-05] MEDS: buPROPion **XL** TABLET 150MG (WELLBUTRIN XL) PO SCH (09:34)
[2021-08-05] MEDS: NALTREXONE 50 MG TAB PO SCH (09:34)
[2021-08-05] MEDS: OLANZapine 2.5MG TABLET PO SCH (09:34)
[2021-08-05 17:46] VITALS: BP 111/66
[2021-08-05] MEDS: OLANZapine 10 MG TAB PO SCH (21:18)
[2021-08-06 06:33] VITALS: BP 124/69
[2021-08-06] MEDS: OLANZapine 2.5MG TABLET PO SCH (09:38)
[2021-08-06] MEDS: PROPRANOLOL 60 MG LA CAP PO SCH (09:38)
[2021-08-06] MEDS: NALTREXONE 50 MG TAB PO SCH (09:38)
[2021-08-06] MEDS: buPROPion **XL** TABLET 150MG (WELLBUTRIN XL) PO SCH (09:39)
[2021-08-06 17:24] LABS: GC DNA AMPLIFICATION NEGATIVE (NEGATIVE)
[2021-08-06 18:33] VITALS: BP 137/76
[2021-08-06] MEDS: OLANZapine 10 MG TAB PO SCH (21:12)
[2021-08-07 06:30] VITALS: BP 98/62
[2021-08-07] MEDS: PROPRANOLOL 60 MG LA CAP PO SCH (09:00)
[2021-08-07] MEDS: OLANZapine 2.5MG TABLET PO SCH (09:20)
[2021-08-07] MEDS: NALTREXONE 50 MG TAB PO SCH (09:20)
[2021-08-07] MEDS: buPROPion **XL** TABLET 150MG (WELLBUTRIN XL) PO SCH (09:21)
[2021-08-07 16:37] VITALS: BP 125/80
[2021-08-07] MEDS: OLANZapine 10 MG TAB PO SCH (20:23)
[2021-08-08 06:26] VITALS: BP 104/64
[2021-08-08] MEDS: PROPRANOLOL 60 MG LA CAP PO SCH (09:00)
[2021-08-08] MEDS: buPROPion **XL** TABLET 150MG (WELLBUTRIN XL) PO SCH (09:48)
[2021-08-08] MEDS: NALTREXONE 50 MG TAB PO SCH (09:48)
[2021-08-08] MEDS: OLANZapine 2.5MG TABLET PO SCH (09:48)
[2021-08-08 10:53] LABS: HEMOGLOBIN 12.3 g/dl (12.0-15.5); MEAN CORPUSCULAR HEMOGLOBIN 26.1 pg (27.0-33.0); PLATELET COUNT, AUTOMATED 591 10^3/uL (150-450); RED BLOOD COUNT 4.71 10^6/uL (4.00-5.40); WHITE BLOOD COUNT 7.3 10^3/uL (4.0-10.0)
[2021-08-08 11:24] LABS: ALT/SGPT 21 U/L (12-78); BLOOD UREA NITROGEN 13 MG/DL (7-18); CALCIUM LEVEL 8.4 MG/DL (8.5-10.1); CARBON DIOXIDE LEVEL 25 MEQ/L (21-32); CHLORIDE LEVEL 113 MEQ/L (98-107); CREATININE FOR GFR 0.91 MG/DL (0.55-1.30); GLOMERULAR FILTRATION RATE > 60.0 (>58); GLUCOSE, FASTING 89 MG/DL (70-100); POTASSIUM SERUM 4.4 MEQ/L (3.5-5.1); SODIUM LEVEL 144 MEQ/L (136-145)
[2021-08-08 11:25] LABS: ALBUMIN 2.3 GM/DL (3.2-5.2); BILIRUBIN,TOTAL 0.2 MG/DL (0.2-1.0); FREE T3 3.5 PG/ML (2.2-4.0); FREE T4 1.67 NG/DL (0.76-1.46); THYROID STIMULATING HORMONE < 0.005 uIU/ML (0.358-3.740); TOTAL PROTEIN 7.2 GM/DL (6.4-8.2)
[2021-08-08 18:24] VITALS: BP 113/75
[2021-08-08] MEDS: OLANZapine 10 MG TAB PO SCH (21:05)
[2021-08-09 07:01] VITALS: BP 103/59
[2021-08-09] MEDS: PROPRANOLOL 60 MG LA CAP PO SCH (09:00)
[2021-08-09] MEDS: buPROPion **XL** TABLET 150MG (WELLBUTRIN XL) PO SCH (10:04)
[2021-08-09] MEDS: NALTREXONE 50 MG TAB PO SCH (10:04)
[2021-08-09] MEDS: OLANZapine 2.5MG TABLET PO SCH (10:05)
[2021-08-09] MEDS: OLANZapine 10 MG TAB PO SCH (20:48)
[2021-08-10 07:22] VITALS: BP 106/64
[2021-08-10] MEDS: buPROPion **XL** TABLET 150MG (WELLBUTRIN XL) PO SCH (09:25)
[2021-08-10] MEDS: OLANZapine 2.5MG TABLET PO SCH (09:25)
[2021-08-10] MEDS: NALTREXONE 50 MG TAB PO SCH (09:25)
[2021-08-10] MEDS: PROPRANOLOL 60 MG LA CAP PO SCH (09:26)
[2021-08-10 17:15] VITALS: BP 100/66
[2021-08-10] MEDS: OLANZapine 10 MG TAB PO SCH (21:15)
[2021-08-11 06:24] VITALS: BP 90/53
[2021-08-11 09:39] VITALS: BP 90/68
[2021-08-11] MEDS ORDERED: NALT50TA4 PO (09:42)
[2021-08-11] MEDS ORDERED: INDE60CA4 PO (09:42)
[2021-08-11] MEDS ORDERED: OLAN2.5T25 PO (09:42)
[2021-08-11] MEDS ORDERED: OLAN1TAB20 PO (09:42)
[2021-08-11] MEDS ORDERED: BUPR150T12 PO (09:42)
[2021-08-11] MEDS ORDERED: METH25TAB PO (09:42)
[2021-08-11 11:33] VITALS: BP 110/80
[2021-08-11] MEDS: NALTREXONE 50 MG TAB PO SCH (11:36)
[2021-08-11] MEDS: OLANZapine 2.5MG TABLET PO SCH (11:36)
[2021-08-11] MEDS: buPROPion **XL** TABLET 150MG (WELLBUTRIN XL) PO SCH (11:36)
[2021-08-11 11:37] VITALS: BP 110/80
[2021-08-11] MEDS: PROPRANOLOL 60 MG LA CAP PO SCH (11:37)
== END 2021-08-11 13:04 | disposition home or self-care (01) | DRG 753 ==
LOC: M PSY 16:57
PROVIDERS: ADMIT Psychiatry & Neurology Psychiatry; ATTEND Psychiatry & Neurology Psychiatry
DX: F31.2 Bipolar disorder, current episode manic severe with psychotic features (principal); E05.90 Thyrotoxicosis, unspecified without thyrotoxic crisis or storm; J45.909 Unspecified asthma, uncomplicated; G40.909 Epilepsy, unspecified, not intractable, without status epilepticus; Z89.029 Acquired absence of unspecified finger(s); F16.10 Hallucinogen abuse, uncomplicated; Z79.899 Other long term (current) drug therapy; Z88.0 Allergy status to penicillin; Z88.2 Allergy status to sulfonamides; Z88.5 Allergy status to narcotic agent; Z88.8 Allergy status to other drugs, medicaments and biological substances; Z91.040 Latex allergy status; M32.9 Systemic lupus erythematosus, unspecified

== ENCOUNTER 2021-09-26 18:29 | Emergency (ER) | payer MEDICAID, OTHER ==
[~2021-09-26] VITALS: Ht 170.2 cm; Wt 85.9 kg
[~2021-09-26 18:29] MED LIST changes: +BUPR150T12 PO; +OLAN2.5T25 PO
[2021-09-26 19:09] LABS: HEMATOCRIT 35.3 % (36.0-47.0); HEMOGLOBIN 11.2 g/dl (12.0-15.5); MEAN CORPUSCULAR HEMOGLOBIN 28.4 pg (27.0-33.0); MEAN CORPUSCULAR HGB CONC 31.7 g/dl (32.0-36.5); MEAN CORPUSCULAR VOLUME 89.6 fl (80.0-96.0); PLATELET COUNT, AUTOMATED 388 10^3/uL (150-450); RED BLOOD COUNT 3.94 10^6/uL (4.00-5.40); WHITE BLOOD COUNT 16.5 10^3/uL (4.0-10.0)
[2021-09-26 19:54] LABS: ACETAMINOPHEN LEVEL < 2.0 UG/ML (10.0-30.0); ALBUMIN 3.3 GM/DL (3.2-5.2); ALT/SGPT 19 U/L (12-78); BILIRUBIN,DIRECT 0.2 MG/DL (0.0-0.2); BILIRUBIN,TOTAL 0.5 MG/DL (0.2-1.0); BLOOD UREA NITROGEN 8 MG/DL (7-18); CALCIUM LEVEL 7.9 MG/DL (8.5-10.1); CARBON DIOXIDE LEVEL 21 MEQ/L (21-32); CHLORIDE LEVEL 112 MEQ/L (98-107); CREATININE FOR GFR 0.96 MG/DL (0.55-1.30); ETHYL ALCOHOL (ETHANOL) < 0.003 % (0.000-0.010); FREE T4 1.14 NG/DL (0.76-1.46); GLOMERULAR FILTRATION RATE > 60.0 (>58); GLUCOSE, FASTING 102 MG/DL (70-100); POTASSIUM SERUM 3.8 MEQ/L (3.5-5.1); SALICYLATE LEVEL < 1.7 MG/DL (5.0-30.0); SODIUM LEVEL 140 MEQ/L (136-145); THYROID STIMULATING HORMONE 0.314 uIU/ML (0.358-3.740)
[2021-09-26 19:56] LABS: HCG, SERUM QUALITATIVE NEGATIVE (NEGATIVE)
[2021-09-26 20:33] LABS: AMPHETAMINES LEVEL URINE POSITIVE (NEGATIVE); BARBITURATES URINE NEGATIVE (NEGATIVE); BENZODIAZEPINES URINE NEGATIVE (NEGATIVE); CANNABINOIDS URINE POSITIVE (NEGATIVE); COCAINE METABOLITE URINE NEGATIVE (NEGATIVE); METHADONE URINE NEGATIVE (NEGATIVE); OPIATES URINE NEGATIVE (NEGATIVE); PHENCYCLIDINE URINE NEGATIVE (NEGATIVE)
[2021-09-26 20:54] LABS: RSV AMPLIFICATION NEGATIVE (NEGATIVE)
[2021-09-27 00:15] LABS: BASO # 0.1 10^3/uL (0.0-0.2); BASO % 0.4 % (0.0-1.0); EOS % 0.3 % (0.0-3.0); LYMPH # 0.7 10^3/uL (1.5-5.0); LYMPH % 4.3 % (24.0-44.0); MONO # 1.2 10^3/uL (0.0-0.8); MONO % 7.5 % (2.0-8.0); NEUTROPHILS # 13.6 10^3/uL (1.5-8.5); NEUTROPHILS % 87.1 % (36.0-66.0)
[2021-09-27] MEDS ORDERED: CEPHALEXIN 500 MG CAP PO ONE (01:10)
[2021-09-27] MEDS ORDERED: ACETAMINOPHEN 325 MG TAB PO ONE ×2 (01:20)
[2021-09-27] MEDS ORDERED: KETOROLAC 60MG 2ML VIAL IM ONE (01:20)
[2021-09-27] MEDS ORDERED: PROP60CA PO (02:29)
[2021-09-27] MEDS ORDERED: OLAN1TAB20 PO (02:29)
[2021-09-27] MEDS ORDERED: METH25TAB PO (02:29)
[2021-09-27] MEDS ORDERED: BUPR300T92 PO (02:29)
[2021-09-27] MEDS ORDERED: OLAN2.5T25 PO (02:29)
[2021-09-27] MEDS ORDERED: LAMO150T3 PO (02:29)
[2021-09-27] MEDS ORDERED: NALT50TA4 PO (02:30)
[2021-09-27] MEDS ORDERED: HOME MED LIST COMPLETE! XX SCH (02:35)
[2021-09-27 04:22] VITALS: BP 97/53
== END 2021-09-27 04:24 ==
LOC: M ED 18:29
DX: F23 Brief psychotic disorder (principal); N39.0 Urinary tract infection, site not specified; B97.81 Human metapneumovirus as the cause of diseases classified elsewhere; F31.9 Bipolar disorder, unspecified; E03.9 Hypothyroidism, unspecified; Z98.84 Bariatric surgery status; F17.200 Nicotine dependence, unspecified, uncomplicated; F12.10 Cannabis abuse, uncomplicated; F19.10 Other psychoactive substance abuse, uncomplicated; Z88.6 Allergy status to analgesic agent; Z88.0 Allergy status to penicillin; Z88.2 Allergy status to sulfonamides; Z88.5 Allergy status to narcotic agent; Z91.040 Latex allergy status
CPT/HCPCS: 80048; 80076; 80143; 80307; 81001; 82077; 84439; 84443; 84703; 85027; 87088; 87186; 87631; 87798; 93005; 96372; 99284; J1885

== ENCOUNTER 2021-10-21 21:59 | Emergency (ER) | payer MEDICAID, OTHER ==
[~2021-10-21] VITALS: Ht 170.2 cm; Wt 99.0 kg
[~2021-10-21 21:59] MED LIST changes: +PROP60CA PO
[2021-10-22 02:52] LABS: HEMATOCRIT 36.8 % (36.0-47.0); HEMOGLOBIN 11.9 g/dl (12.0-15.5); MEAN CORPUSCULAR HEMOGLOBIN 28.7 pg (27.0-33.0); MEAN CORPUSCULAR HGB CONC 32.3 g/dl (32.0-36.5); MEAN CORPUSCULAR VOLUME 88.9 fl (80.0-96.0); PLATELET COUNT, AUTOMATED 481 10^3/uL (150-450); RED BLOOD COUNT 4.14 10^6/uL (4.00-5.40); WHITE BLOOD COUNT 8.4 10^3/uL (4.0-10.0)
[2021-10-22 02:57] LABS: HCG, SERUM QUALITATIVE NEGATIVE (NEGATIVE)
[2021-10-22 03:08] LABS: ACETAMINOPHEN LEVEL < 2.0 UG/ML (10.0-30.0); ALT/SGPT 27 U/L (12-78); BILIRUBIN,DIRECT < 0.1 MG/DL (0.0-0.2); BILIRUBIN,TOTAL 0.3 MG/DL (0.2-1.0); BLOOD UREA NITROGEN 15 MG/DL (7-18); CALCIUM LEVEL 8.6 MG/DL (8.5-10.1); CARBON DIOXIDE LEVEL 23 MEQ/L (21-32); CHLORIDE LEVEL 112 MEQ/L (98-107); CREATININE FOR GFR 0.74 MG/DL (0.55-1.30); ETHYL ALCOHOL (ETHANOL) < 0.003 % (0.000-0.010); GLOMERULAR FILTRATION RATE > 60.0 (>58); GLUCOSE, FASTING 88 MG/DL (70-100); POTASSIUM SERUM 4.3 MEQ/L (3.5-5.1); SALICYLATE LEVEL < 1.7 MG/DL (5.0-30.0); SODIUM LEVEL 141 MEQ/L (136-145); THYROID STIMULATING HORMONE 0.972 uIU/ML (0.358-3.740); TOTAL PROTEIN 6.8 GM/DL (6.4-8.2)
[2021-10-22 07:05] LABS: AMPHETAMINES LEVEL URINE NEGATIVE (NEGATIVE); BARBITURATES URINE NEGATIVE (NEGATIVE); BENZODIAZEPINES URINE NEGATIVE (NEGATIVE); CANNABINOIDS URINE NEGATIVE (NEGATIVE); COCAINE METABOLITE URINE NEGATIVE (NEGATIVE); METHADONE URINE NEGATIVE (NEGATIVE); OPIATES URINE NEGATIVE (NEGATIVE); PHENCYCLIDINE URINE NEGATIVE (NEGATIVE)
[2021-10-22 09:40] VITALS: BP 126/49
[2021-10-23] MEDS ORDERED: OLAN1TAB16 PO (06:45)
[2021-10-23] MEDS ORDERED: VITA100093 PO (06:45)
[2021-10-23] MEDS ORDERED: HYDR-3363 PO (06:45)
[2021-10-23] MEDS ORDERED: OLAN15TA13 PO (06:45)
== END 2021-10-22 10:45 | disposition home or self-care (01) ==
LOC: M ED 21:59
DX: F19.10 Other psychoactive substance abuse, uncomplicated (principal); F31.9 Bipolar disorder, unspecified; J45.909 Unspecified asthma, uncomplicated; Z79.899 Other long term (current) drug therapy; Z88.6 Allergy status to analgesic agent; Z88.0 Allergy status to penicillin; Z88.2 Allergy status to sulfonamides; Z88.5 Allergy status to narcotic agent; Z91.040 Latex allergy status

== ENCOUNTER 2021-10-23 01:54 | Inpatient (IN) | payer MEDICAID, OTHER ==
[~2021-10-23] VITALS: Ht 170.2 cm; Wt 99.0 kg
[2021-10-23] MEDS ORDERED: LORazepam 2 MG TAB PO ONE (02:50)
[2021-10-23 03:26] LABS: HEMATOCRIT 38.6 % (36.0-47.0); HEMOGLOBIN 12.3 g/dl (12.0-15.5); MEAN CORPUSCULAR HEMOGLOBIN 28.3 pg (27.0-33.0); MEAN CORPUSCULAR HGB CONC 31.9 g/dl (32.0-36.5); MEAN CORPUSCULAR VOLUME 88.9 fl (80.0-96.0); PLATELET COUNT, AUTOMATED 516 10^3/uL (150-450); RED BLOOD COUNT 4.34 10^6/uL (4.00-5.40); WHITE BLOOD COUNT 7.2 10^3/uL (4.0-10.0)
[2021-10-23 03:51] LABS: AMPHETAMINES LEVEL URINE NEGATIVE (NEGATIVE); BARBITURATES URINE NEGATIVE (NEGATIVE); BENZODIAZEPINES URINE NEGATIVE (NEGATIVE); CANNABINOIDS URINE NEGATIVE (NEGATIVE); COCAINE METABOLITE URINE NEGATIVE (NEGATIVE); METHADONE URINE NEGATIVE (NEGATIVE); OPIATES URINE NEGATIVE (NEGATIVE); PHENCYCLIDINE URINE NEGATIVE (NEGATIVE)
[2021-10-23 03:54] LABS: HCG, SERUM QUALITATIVE NEGATIVE (NEGATIVE)
[2021-10-23 04:06] LABS: ACETAMINOPHEN LEVEL < 2.0 UG/ML (10.0-30.0); ALBUMIN 3.1 GM/DL (3.2-5.2); ALT/SGPT 26 U/L (12-78); BILIRUBIN,DIRECT < 0.1 MG/DL (0.0-0.2); BILIRUBIN,TOTAL 0.2 MG/DL (0.2-1.0); BLOOD UREA NITROGEN 14 MG/DL (7-18); CALCIUM LEVEL 8.7 MG/DL (8.5-10.1); CARBON DIOXIDE LEVEL 22 MEQ/L (21-32); CHLORIDE LEVEL 113 MEQ/L (98-107); CREATININE FOR GFR 0.81 MG/DL (0.55-1.30); ETHYL ALCOHOL (ETHANOL) < 0.003 % (0.000-0.010); GLOMERULAR FILTRATION RATE > 60.0 (>58); GLUCOSE, FASTING 99 MG/DL (70-100); POTASSIUM SERUM 4.8 MEQ/L (3.5-5.1); SALICYLATE LEVEL < 1.7 MG/DL (5.0-30.0); SODIUM LEVEL 141 MEQ/L (136-145); THYROID STIMULATING HORMONE 0.579 uIU/ML (0.358-3.740); TOTAL PROTEIN 7.5 GM/DL (6.4-8.2)
[2021-10-23 05:15] LABS: RSV AMPLIFICATION NEGATIVE (NEGATIVE)
[2021-10-23] MEDS ORDERED: OLAN15TA13 PO (06:45)
[2021-10-23] MEDS ORDERED: HOME MED LIST COMPLETE! XX SCH (06:45)
[2021-10-23] MEDS ORDERED: HYDR-3363 PO (06:45)
[2021-10-23] MEDS ORDERED: OLAN1TAB16 PO (06:45)
[2021-10-23] MEDS ORDERED: VITA100093 PO (06:45)
[2021-10-23] MEDS ORDERED: hydrOXYzine 25 MG TAB PO SCH (07:35)
[2021-10-23] MEDS ORDERED: hydrOXYzine 25 MG TAB PO PRN (07:50)
[2021-10-23] MEDS ORDERED: OLANZapine 2.5MG TABLET PO SCH (09:00)
[2021-10-23] MEDS ORDERED: PROPRANOLOL 60 MG LA CAP PO SCH ×2 (09:00→21:00)
[2021-10-23] MEDS ORDERED: buPROPion **XL** TABLET 150MG (WELLBUTRIN XL) PO SCH (09:00)
[2021-10-23] MEDS ORDERED: VITAMIN D 1,000 INTERNATIONAL UNITS TABLET PO SCH (09:00)
[2021-10-23] MEDS ORDERED: OLANZapine 5 MG TAB PO SCH ×4 (09:00→21:00)
[2021-10-23] MEDS ORDERED: MOM 30ML SUSPENSION UDC PO PRN (15:30)
[2021-10-23] MEDS ORDERED: MAALOX 30 ML SUSP *UDC PO PRN (15:30)
[2021-10-23 21:41] VITALS: BP 109/58
[2021-10-24 06:15] VITALS: BP 96/53
[2021-10-24] MEDS: lamoTRIgine 100MG TAB PO SCH (08:24)
[2021-10-24] MEDS: PILL CUTTER 1 EACH XX PRN (08:24)
[2021-10-24] MEDS: VITAMIN D 1,000 INTERNATIONAL UNITS TABLET PO SCH (08:26)
[2021-10-24] MEDS: buPROPion **XL** TABLET 150MG (WELLBUTRIN XL) PO SCH (08:27)
[2021-10-24] MEDS: hydrOXYzine 25 MG TAB PO PRN ×2 (08:27→21:08)
[2021-10-24] MEDS: PROPRANOLOL 60 MG LA CAP PO SCH (08:31)
[2021-10-24] MEDS: OLANZapine 2.5MG TABLET PO SCH (09:52)
[2021-10-24] MEDS: OLANZapine 5 MG TAB PO SCH (12:18)
[2021-10-24] MEDS: CitaloPRAM (CeleXA) 20 MG TAB PO SCH (14:09)
[2021-10-24 17:00] VITALS: BP 114/67
[2021-10-24] MEDS: OLANZapine 10 MG TAB PO SCH (20:40)
[2021-10-24] MEDS: OLANZapine ORAL DISINTEGRATING TAB 5MG PO PRN (21:08)
[2021-10-24] MEDS: traZODone 50 MG TAB PO PRN (21:08)
[2021-10-25 06:29] VITALS: BP 112/58
[2021-10-25] MEDS: lamoTRIgine 100MG TAB PO SCH (08:43)
[2021-10-25] MEDS: PILL CUTTER 1 EACH XX PRN (08:43)
[2021-10-25] MEDS: buPROPion **XL** TABLET 150MG (WELLBUTRIN XL) PO SCH (08:43)
[2021-10-25] MEDS: CitaloPRAM (CeleXA) 20 MG TAB PO SCH (08:44)
[2021-10-25] MEDS: VITAMIN D 1,000 INTERNATIONAL UNITS TABLET PO SCH (08:44)
[2021-10-25] MEDS: OLANZapine 2.5MG TABLET PO SCH (08:44)
[2021-10-25 08:50] VITALS: BP 100/60
[2021-10-25] MEDS: PROPRANOLOL 60 MG LA CAP PO SCH ×2 (08:50→11:46)
[2021-10-25] MEDS ORDERED: OLANZapine 5 MG TAB PO ONE (11:40)
[2021-10-25] MEDS: OLANZapine 5 MG TAB PO SCH (11:47)
[2021-10-25] MEDS: ACETAMINOPHEN TAB 650MG DOSE (2X325MG) PO PRN ×2 (11:47→20:20)
[2021-10-25] MEDS ORDERED: OLANZapine 2.5MG TABLET PO ONE (12:15)
[2021-10-25] MEDS ORDERED: LIDOCAINE 5% (LIDODERM) PATCH TD ONE (14:00)
[2021-10-25 16:34] VITALS: BP 116/64
[2021-10-25] MEDS: OLANZapine 10 MG TAB PO SCH (20:19)
[2021-10-25] MEDS: traZODone 50 MG TAB PO PRN (20:20)
[2021-10-25] MEDS: hydrOXYzine 25 MG TAB PO PRN (20:20)
[2021-10-26] MEDS ORDERED: **NOTE PATIENT COMMENT** MISC XX ONE (02:00)
[2021-10-26 06:24] VITALS: BP 97/66
[2021-10-26] MEDS: lamoTRIgine 100MG TAB PO SCH (08:51)
[2021-10-26] MEDS: PILL CUTTER 1 EACH XX PRN (08:51)
[2021-10-26] MEDS: CitaloPRAM (CeleXA) 20 MG TAB PO SCH (08:52)
[2021-10-26] MEDS: buPROPion **XL** TABLET 150MG (WELLBUTRIN XL) PO SCH (08:52)
[2021-10-26] MEDS: OLANZapine 10 MG TAB PO SCH ×2 (08:52→21:17)
[2021-10-26] MEDS: VITAMIN D 1,000 INTERNATIONAL UNITS TABLET PO SCH (08:52)
[2021-10-26] MEDS: PROPRANOLOL 60 MG LA CAP PO SCH (08:55)
[2021-10-26] MEDS ORDERED: OLANZapine 5 MG TAB PO SCH (09:00)
[2021-10-26] MEDS: OLANZapine ORAL DISINTEGRATING TAB 5MG PO PRN (12:43)
[2021-10-26 18:45] VITALS: BP 127/80
[2021-10-26] MEDS: traZODone 50 MG TAB PO PRN (21:17)
[2021-10-26] MEDS: hydrOXYzine 25 MG TAB PO PRN (21:17)
[2021-10-27 06:35] VITALS: BP 116/53
[2021-10-27] MEDS: PILL CUTTER 1 EACH XX PRN (08:15)
[2021-10-27] MEDS: lamoTRIgine 100MG TAB PO SCH (08:15)
[2021-10-27] MEDS: CitaloPRAM (CeleXA) 20 MG TAB PO SCH (08:18)
[2021-10-27] MEDS: buPROPion **XL** TABLET 150MG (WELLBUTRIN XL) PO SCH (08:18)
[2021-10-27] MEDS: PROPRANOLOL 60 MG LA CAP PO SCH (08:18)
[2021-10-27] MEDS: OLANZapine 10 MG TAB PO SCH ×2 (08:18→20:17)
[2021-10-27] MEDS: VITAMIN D 1,000 INTERNATIONAL UNITS TABLET PO SCH (08:18)
[2021-10-27 17:51] VITALS: BP 122/63
[2021-10-27] MEDS: traZODone 50 MG TAB PO PRN (20:16)
[2021-10-27] MEDS: hydrOXYzine 25 MG TAB PO PRN (20:17)
[2021-10-28 06:53] VITALS: BP 103/67
[2021-10-28] MEDS: PROPRANOLOL 60 MG LA CAP PO SCH (09:00)
[2021-10-28] MEDS: lamoTRIgine 100MG TAB PO SCH (10:03)
[2021-10-28] MEDS: PILL CUTTER 1 EACH XX PRN (10:03)
[2021-10-28] MEDS: CitaloPRAM (CeleXA) 20 MG TAB PO SCH (10:04)
[2021-10-28] MEDS: buPROPion **XL** TABLET 150MG (WELLBUTRIN XL) PO SCH (10:04)
[2021-10-28] MEDS: VITAMIN D 1,000 INTERNATIONAL UNITS TABLET PO SCH (10:04)
[2021-10-28] MEDS: OLANZapine 10 MG TAB PO SCH ×2 (10:06→20:01)
[2021-10-28 16:34] VITALS: BP 115/82
[2021-10-28] MEDS: traZODone 50 MG TAB PO PRN (20:01)
[2021-10-28] MEDS: hydrOXYzine 25 MG TAB PO PRN (20:01)
[2021-10-29 06:27] VITALS: BP 110/70
[2021-10-29 08:03] VITALS: BP 110/70
[2021-10-29] MEDS: OLANZapine 10 MG TAB PO SCH (08:03)
[2021-10-29] MEDS: lamoTRIgine 100MG TAB PO SCH (08:03)
[2021-10-29] MEDS: VITAMIN D 1,000 INTERNATIONAL UNITS TABLET PO SCH (08:03)
[2021-10-29] MEDS: CitaloPRAM (CeleXA) 20 MG TAB PO SCH (08:03)
[2021-10-29] MEDS: buPROPion **XL** TABLET 150MG (WELLBUTRIN XL) PO SCH (08:03)
[2021-10-29] MEDS: PROPRANOLOL 60 MG LA CAP PO SCH (08:03)
[2021-10-29] MEDS ORDERED: CELE20TA PO (10:05)
[2021-10-29] MEDS ORDERED: OLAN20TA14 PO (10:05)
[2021-10-29] MEDS ORDERED: BUPR300T92 PO (10:05)
[2021-10-29] MEDS ORDERED: METH25TAB PO (10:05)
[2021-10-29] MEDS ORDERED: LAMO150T3 PO (10:05)
[2021-10-29] MEDS ORDERED: HYDR-3363 PO (10:05)
[2021-10-29] MEDS ORDERED: PROP60CA PO (10:05)
== END 2021-10-29 11:26 | disposition home or self-care (01) | DRG 753 ==
LOC: M ED 01:54 → M ED INP 15:29 → M PSY 21:07
PROVIDERS: ADMIT Psychiatry & Neurology Psychiatry; ATTEND Psychiatry & Neurology Psychiatry
DX: F31.5 Bipolar disorder, current episode depressed, severe, with psychotic features (principal); F15.90 Other stimulant use, unspecified, uncomplicated; R45.851 Suicidal ideations; Z20.822 Contact with and (suspected) exposure to COVID-19; Z79.899 Other long term (current) drug therapy; M32.9 Systemic lupus erythematosus, unspecified; G40.909 Epilepsy, unspecified, not intractable, without status epilepticus; J45.909 Unspecified asthma, uncomplicated; M54.9 Dorsalgia, unspecified; Z88.0 Allergy status to penicillin; Z88.2 Allergy status to sulfonamides; Z88.5 Allergy status to narcotic agent; Z88.8 Allergy status to other drugs, medicaments and biological substances; Z91.040 Latex allergy status; E05.00 Thyrotoxicosis with diffuse goiter without thyrotoxic crisis or storm; Z89.421 Acquired absence of other right toe(s); Z89.029 Acquired absence of unspecified finger(s)

== ENCOUNTER 2021-12-21 14:20 | Emergency (ER) | payer MEDICAID, OTHER ==
[~2021-12-21] VITALS: Ht 170.2 cm; Wt 96.4 kg
[~2021-12-21 14:20] MED LIST changes: +CELE20TA PO; +HYDR-3363 PO; +OLAN1TAB16 PO; +OLAN20TA14 PO; +VITA100093 PO
[2021-12-21 16:53] LABS: BASO # 0.1 10^3/uL (0.0-0.2); BASO % 0.5 % (0.0-1.0); EOS # 0.4 10^3/uL (0.0-0.5); EOS % 4.4 % (0.0-3.0); HEMATOCRIT 38.9 % (36.0-47.0); HEMOGLOBIN 12.2 g/dl (12.0-15.5); LYMPH # 1.8 10^3/uL (1.5-5.0); LYMPH % 19.5 % (24.0-44.0); MEAN CORPUSCULAR HEMOGLOBIN 27.4 pg (27.0-33.0); MEAN CORPUSCULAR HGB CONC 31.4 g/dl (32.0-36.5); MEAN CORPUSCULAR VOLUME 87.2 fl (80.0-96.0); MONO # 1.1 10^3/uL (0.0-0.8); MONO % 11.9 % (2.0-8.0); NEUTROPHILS # 5.8 10^3/uL (1.5-8.5); NEUTROPHILS % 63.5 % (36.0-66.0); PLATELET COUNT, AUTOMATED 536 10^3/uL (150-450); RED BLOOD COUNT 4.46 10^6/uL (4.00-5.40); WHITE BLOOD COUNT 9.2 10^3/uL (4.0-10.0)
[2021-12-21 17:07] LABS: INR 1.09; PROTHROMBIN TIME 14.5 SECONDS (12.7-14.5)
[2021-12-21 17:11] LABS: PARTIAL THROMBOPLASTIN TIME 37.6 SECONDS (25.9-37.0)
[2021-12-21] MEDS ORDERED: NS 1,000 ML IV ONE (17:20)
[2021-12-21] MEDS ORDERED: DICYCLOMINE 10 MG CAP PO ONE (17:20)
[2021-12-21 17:32] LABS: ALBUMIN 3.1 GM/DL (3.2-5.2); ALT/SGPT 23 U/L (12-78); BILIRUBIN,DIRECT < 0.1 MG/DL (0.0-0.2); BILIRUBIN,TOTAL 0.3 MG/DL (0.2-1.0); BLOOD UREA NITROGEN 10 MG/DL (7-18); CALCIUM LEVEL 8.7 MG/DL (8.5-10.1); CARBON DIOXIDE LEVEL 25 MEQ/L (21-32); CHLORIDE LEVEL 109 MEQ/L (98-107); CREATININE FOR GFR 0.92 MG/DL (0.55-1.30); GLOMERULAR FILTRATION RATE > 60.0 (>58); GLUCOSE, FASTING 102 MG/DL (70-100); LIPASE 96 U/L (73-393); POTASSIUM SERUM 4.3 MEQ/L (3.5-5.1); SODIUM LEVEL 140 MEQ/L (136-145); TOTAL PROTEIN 7.6 GM/DL (6.4-8.2)
[2021-12-21 17:34] LABS: D-DIMER QUANT 1815.39 ng/ml (<500)
[2021-12-21] MEDS ORDERED: ISOVUE-370 76% 100ML VIAL As Ordered ONE (18:52)
[2021-12-21] MEDS ORDERED: AZITHROMYCIN 250MG TABLET PO ONE (20:45)
[2021-12-21] MEDS ORDERED: LIDOCAINE 5% (LIDODERM) PATCH TD ONE (20:55)
[2021-12-21] MEDS ORDERED: AZIT500T5 PO (20:58)
[2021-12-21] MEDS ORDERED: **NOTE PATIENT COMMENT** MISC XX SCH (21:00)
[2021-12-21 21:36] VITALS: BP 119/76
== END 2021-12-21 21:59 | disposition home or self-care (01) ==
LOC: M ED 14:20
DX: A04.0 Enteropathogenic Escherichia coli infection (principal); D69.1 Qualitative platelet defects; R19.7 Diarrhea, unspecified; R06.02 Shortness of breath; E04.1 Nontoxic single thyroid nodule; J45.909 Unspecified asthma, uncomplicated; Z87.442 Personal history of urinary calculi; E03.9 Hypothyroidism, unspecified; Z98.84 Bariatric surgery status; Z79.899 Other long term (current) drug therapy; Z88.6 Allergy status to analgesic agent; Z88.0 Allergy status to penicillin; Z88.2 Allergy status to sulfonamides; Z88.5 Allergy status to narcotic agent; Z91.040 Latex allergy status
CPT/HCPCS: 70450; 71046; 71275; 80048; 80076; 83690; 85025; 85379; 85610; 85730; 86850; 86900; 86901; 87507; 93005; 96360; 99284; Q9967

== ENCOUNTER → 2022-09-23 | Outpatient (REF) ==
[~2022-09-23] MED LIST changes: +AZIT500T5 PO
== END ==
LOC: M LAB 15:32
PROVIDERS: ATTEND Nurse Practitioner Adult Health
DX: Z02.1 Encounter for pre-employment examination (principal)

== ENCOUNTER → 2022-09-27 | Outpatient (REF) | LOC: M EMP 09:07 | PROVIDERS: ATTEND Family Medicine | DX: Z11.52 Encounter for screening for COVID-19 (principal) ==

== ENCOUNTER 2022-10-03 06:49 | Emergency (ER) | payer OTHER ==
[~2022-10-03] VITALS: Ht 170.2 cm; Wt 100.0 kg
[2022-10-03 08:06] LABS: BASO % 0.4 % (0.0-1.0); EOS # 0.1 10^3/uL (0.0-0.5); EOS % 1.1 % (0.0-3.0); HEMATOCRIT 39.5 % (36.0-47.0); HEMOGLOBIN 12.4 g/dl (12.0-15.5); LYMPH # 1.6 10^3/uL (1.5-5.0); LYMPH % 17.8 % (24.0-44.0); MEAN CORPUSCULAR HEMOGLOBIN 27.3 pg (27.0-33.0); MEAN CORPUSCULAR HGB CONC 31.4 g/dl (32.0-36.5); MONO # 0.7 10^3/uL (0.0-0.8); MONO % 7.3 % (2.0-8.0); NEUTROPHILS # 6.6 10^3/uL (1.5-8.5); NEUTROPHILS % 73.2 % (36.0-66.0); PLATELET COUNT, AUTOMATED 384 10^3/uL (150-450); RED BLOOD COUNT 4.54 10^6/uL (4.00-5.40); WHITE BLOOD COUNT 9.1 10^3/uL (4.0-10.0)
[2022-10-03 09:02] VITALS: BP_DIAS 90
[2022-10-03 09:03] LABS: ALKALINE PHOSPHATASE 108 U/L (46-116); ALT/SGPT 19 U/L (7.0-40); AST/SGOT 47 U/L (<34); BILIRUBIN,DIRECT 0.1 MG/DL (<0.4); BILIRUBIN,TOTAL 0.5 MG/DL (0.3-1.2); BLOOD UREA NITROGEN < 5 MG/DL (9-23); CALCIUM LEVEL 7.9 MG/DL (8.5-10.1); CARBON DIOXIDE LEVEL 23 MMOL/L (20-31); CHLORIDE LEVEL 107 MMOL/L (98-107); CK-MB VALUE MASS 1.3 NG/ML (<3.6); CPK CREATINE PHOSPHOKINASE 280 U/L (34-145); CREATININE FOR GFR 0.66 MG/DL (0.55-1.30); GLOMERULAR FILTRATION RATE > 60.0 (>58); GLUCOSE, FASTING 109 MG/DL (60-100); LIPASE 29 U/L (12-53); MB/CK RELATIVE INDEX 0.46 (< OR =4); POTASSIUM SERUM 4.7 MMOL/L (3.5-5.1); SODIUM LEVEL 138 MMOL/L (136-145); THYROID STIMULATING HORMONE 0.076 uIU/ML (0.55-4.78); TOTAL PROTEIN 6.8 G/DL (5.7-8.2)
[2022-10-03 09:32] LABS: CK-MB VALUE MASS 1.2 NG/ML (<3.6)
[2022-10-03 09:33] LABS: MB/CK RELATIVE INDEX 0.51 (< OR =4)
[2022-10-03 09:52] VITALS: BP_SYST 94
[2022-10-03] MEDS ORDERED: PROP60CA PO (09:54)
== END 2022-10-03 10:24 | disposition home or self-care (01) ==
LOC: M ED 06:49
DX: R07.9 Chest pain, unspecified (principal); I10 Essential (primary) hypertension; J45.909 Unspecified asthma, uncomplicated; F31.9 Bipolar disorder, unspecified; F20.9 Schizophrenia, unspecified; Z98.84 Bariatric surgery status; F12.10 Cannabis abuse, uncomplicated; Z79.899 Other long term (current) drug therapy; Z88.6 Allergy status to analgesic agent; Z88.0 Allergy status to penicillin; Z88.2 Allergy status to sulfonamides; Z88.5 Allergy status to narcotic agent; Z91.040 Latex allergy status

== ENCOUNTER 2022-10-03 13:27 | Emergency (ER) | payer OTHER ==
[~2022-10-03] VITALS: Ht 170.2 cm; Wt 101.2 kg
[2022-10-03 13:27] VITALS: BP 126/93
[2022-10-03] MEDS ORDERED: LIDOCAINE 1% SDV 5ML VIAL DILUENT ONE (13:45)
[2022-10-03] MEDS ORDERED: cefTRIAXone 500MG VIAL IM ONE (13:45)
[2022-10-03 14:42] LABS: HEPATITIS B SURFACE ANTIBODY NEGATIVE (POSITIVE)
[2022-10-03 14:54] LABS: HEPATITIS B SURFACE ANTIGEN NEGATIVE (NEGATIVE)
[2022-10-03 15:07] LABS: HIV 1&2 SCREEN ATELLICA NEGATIVE (NEGATIVE)
[2022-10-03 15:14] LABS: HCG, SERUM QUALITATIVE NEGATIVE (NEGATIVE)
[2022-10-03 15:58] LABS: GC DNA AMPLIFICATION NEGATIVE (NEGATIVE)
== END 2022-10-03 14:27 | disposition home or self-care (01) ==
LOC: M ED 13:27
DX: Z20.2 Contact with and (suspected) exposure to infections with a predominantly sexual mode of transmission (principal); I10 Essential (primary) hypertension; J45.909 Unspecified asthma, uncomplicated; F31.9 Bipolar disorder, unspecified; F20.9 Schizophrenia, unspecified; E07.9 Disorder of thyroid, unspecified; Z98.84 Bariatric surgery status; F12.10 Cannabis abuse, uncomplicated
CPT/HCPCS: 36415; 84703; 86592; 86706; 86780; 86803; 87340; 87389; 87661; 87810; 87850; 96372; 99282; J0696

== ENCOUNTER 2022-10-04 09:10 | Inpatient (IN) | payer MEDICAID, OTHER, SELFPAY ==
[~2022-10-04] VITALS: Ht 170.2 cm; Wt 99.4 kg
[~2022-10-04 09:10] MED LIST changes: +NAPR-837 PO; +PERC5TAB12 PO
[2022-10-04] MEDS ORDERED: OLANZapine ORAL DISINTEGRATING TAB 5MG PO ONE (09:30)
[2022-10-04 10:27] LABS: HEMOGLOBIN 12.7 g/dl (12.0-15.5); MEAN CORPUSCULAR VOLUME 87.2 fl (80.0-96.0); PLATELET COUNT, AUTOMATED 402 10^3/uL (150-450); WHITE BLOOD COUNT 9.3 10^3/uL (4.0-10.0)
[2022-10-04 10:38] LABS: ETHYL ALCOHOL (ETHANOL) 0.004 % (0.000-0.010)
[2022-10-04 10:39] LABS: ACETAMINOPHEN LEVEL < 2.0 UG/ML (10.0-20.0)
[2022-10-04 10:40] LABS: ALBUMIN 3.4 G/DL (3.2-5.2); ALKALINE PHOSPHATASE 114 U/L (46-116); ALT/SGPT 15 U/L (7.0-40); AST/SGOT 31 U/L (<34); BILIRUBIN,DIRECT 0.1 MG/DL (<0.4); BILIRUBIN,TOTAL 0.3 MG/DL (0.3-1.2); BLOOD UREA NITROGEN 7 MG/DL (9-23); CALCIUM LEVEL 8.3 MG/DL (8.5-10.1); CARBON DIOXIDE LEVEL 20 MMOL/L (20-31); CHLORIDE LEVEL 108 MMOL/L (98-107); CREATININE FOR GFR 0.99 MG/DL (0.55-1.30); GLOMERULAR FILTRATION RATE > 60.0 (>58); GLUCOSE, FASTING 88 MG/DL (60-100); POTASSIUM SERUM 4.2 MMOL/L (3.5-5.1); SALICYLATE LEVEL < 3.0 MG/DL (<30); SODIUM LEVEL 141 MMOL/L (136-145); TOTAL PROTEIN 7.1 G/DL (5.7-8.2)
[2022-10-04 10:41] LABS: THYROID STIMULATING HORMONE 0.061 uIU/ML (0.55-4.78)
[2022-10-04 10:45] LABS: HCG, SERUM QUALITATIVE NEGATIVE (NEGATIVE)
[2022-10-04 10:47] LABS: AMPHETAMINES LEVEL URINE NEGATIVE (NEGATIVE); BARBITURATES URINE NEGATIVE (NEGATIVE); BENZODIAZEPINES URINE NEGATIVE (NEGATIVE); COCAINE METABOLITE URINE NEGATIVE (NEGATIVE); METHADONE URINE NEGATIVE (NEGATIVE); OPIATES URINE NEGATIVE (NEGATIVE); PHENCYCLIDINE URINE NEGATIVE (NEGATIVE)
[2022-10-04 10:52] LABS: CANNABINOIDS URINE POSITIVE (NEGATIVE)
[2022-10-04] MEDS ORDERED: LORazepam 2 MG TAB PO STA (10:52)
[2022-10-04] MEDS ORDERED: traZODone 50 MG TAB PO PRN (12:30)
[2022-10-04] MEDS ORDERED: MOM 30ML SUSPENSION UDC PO PRN (12:30)
[2022-10-04] MEDS ORDERED: MAALOX 30 ML SUSP *UDC PO PRN (12:30)
[2022-10-04] MEDS ORDERED: VITMTA PO (13:54)
[2022-10-04] MEDS ORDERED: HOME MED LIST COMPLETE! XX SCH (14:10)
[2022-10-04] MEDS: NICOTINE 14 MG/24 HR TRANSDERMAL TD SCH (17:43)
[2022-10-04 17:55] VITALS: BP 139/89
[2022-10-04 17:58] VITALS: BP 139/89
[2022-10-04] MEDS: LORazepam 1 MG TAB PO PRN (18:02)
[2022-10-05 06:33] VITALS: BP 116/62
[2022-10-05] MEDS: NICOTINE 14 MG/24 HR TRANSDERMAL TD SCH ×2 (09:00→10:38)
[2022-10-05] MEDS: OLANZapine ORAL DISINTEGRATING TAB 5MG PO PRN ×2 (09:26→14:02)
[2022-10-05] MEDS: buPROPion **XL** TABLET 150MG (WELLBUTRIN XL) PO SCH (11:45)
[2022-10-05] MEDS: lamoTRIgine 25MG TAB PO SCH (11:46)
[2022-10-05] MEDS: PROPRANOLOL 60MG LA CAP PO SCH (11:46)
[2022-10-05] MEDS: CitaloPRAM (CeleXA) 10 MG TABLET PO SCH (11:47)
[2022-10-05] MEDS: LORazepam 1 MG TAB PO PRN ×2 (14:01→21:30)
[2022-10-05 14:36] LABS: FREE T4 1.16 NG/DL (0.89-1.76); THYROID PEROXIDASE ANTIBODY < 28.0 U/ML (<60.0)
[2022-10-05 16:38] VITALS: BP 145/90
[2022-10-05] MEDS: OLANZapine 10 MG TAB PO SCH (21:29)
[2022-10-06 09:49] LABS: CHOLESTEROL RISK RATIO 2.67 (<5); HDL CHOLESTEROL 51.5 MG/DL (>40); LDL CHOLESTEROL 58.1 MG/DL (<100); NON-HDL-C 86.5 MG/DL
[2022-10-06] MEDS: PROPRANOLOL 60MG LA CAP PO SCH (09:58)
[2022-10-06] MEDS: lamoTRIgine 25MG TAB PO SCH (09:58)
[2022-10-06] MEDS: buPROPion **XL** TABLET 150MG (WELLBUTRIN XL) PO SCH (09:58)
[2022-10-06] MEDS: CitaloPRAM (CeleXA) 10 MG TABLET PO SCH (09:58)
[2022-10-06] MEDS: PILL CUTTER 1 EACH XX PRN (09:58)
[2022-10-06] MEDS: OLANZapine ORAL DISINTEGRATING TAB 5MG PO PRN (10:08)
[2022-10-06] MEDS: LORazepam 1 MG TAB PO PRN ×2 (11:03→18:09)
[2022-10-06 18:00] VITALS: BP 105/65
[2022-10-06] MEDS: OLANZapine 10 MG TAB PO SCH (20:10)
[2022-10-07 06:13] VITALS: BP 103/55
[2022-10-07 08:48] VITALS: BP 132/89
[2022-10-07] MEDS: buPROPion **XL** TABLET 150MG (WELLBUTRIN XL) PO SCH (08:48)
[2022-10-07] MEDS: PROPRANOLOL 60MG LA CAP PO SCH (08:48)
[2022-10-07] MEDS: lamoTRIgine 25MG TAB PO SCH (08:48)
[2022-10-07] MEDS: CitaloPRAM (CeleXA) 10 MG TABLET PO SCH (08:49)
[2022-10-07] MEDS: NICOTINE 14 MG/24 HR TRANSDERMAL TD SCH (08:49)
[2022-10-07] MEDS: LORazepam 1 MG TAB PO PRN ×2 (08:52→20:13)
[2022-10-07] MEDS: OLANZapine ORAL DISINTEGRATING TAB 5MG PO PRN ×2 (12:41→17:51)
[2022-10-07 18:54] VITALS: BP 123/85
[2022-10-07] MEDS: OLANZapine 10 MG TAB PO SCH (20:13)
[2022-10-08] MEDS: LORazepam 1 MG TAB PO PRN ×3 (02:15→19:02)
[2022-10-08] MEDS: OLANZapine ORAL DISINTEGRATING TAB 5MG PO PRN ×3 (02:15→20:25)
[2022-10-08 06:18] VITALS: BP 102/62
[2022-10-08 06:26] VITALS: BP 102/62
[2022-10-08] MEDS: lamoTRIgine 25MG TAB PO SCH (08:58)
[2022-10-08] MEDS: CitaloPRAM (CeleXA) 10 MG TABLET PO SCH (08:58)
[2022-10-08] MEDS: buPROPion **XL** TABLET 150MG (WELLBUTRIN XL) PO SCH (08:58)
[2022-10-08] MEDS: PROPRANOLOL 60MG LA CAP PO SCH (08:58)
[2022-10-08 16:19] VITALS: BP 109/58
[2022-10-08] MEDS: OLANZapine 10 MG TAB PO SCH (20:25)
[2022-10-08] MEDS: IBUPROFEN 400MG TAB PO PRN (20:26)
[2022-10-09] MEDS: OLANZapine ORAL DISINTEGRATING TAB 5MG PO PRN ×3 (00:29→21:09)
[2022-10-09 06:30] VITALS: BP 90/55
[2022-10-09 07:38] VITALS: BP 116/75
[2022-10-09] MEDS: buPROPion **XL** TABLET 150MG (WELLBUTRIN XL) PO SCH (09:24)
[2022-10-09] MEDS: PROPRANOLOL 60MG LA CAP PO SCH (09:24)
[2022-10-09] MEDS: lamoTRIgine 25MG TAB PO SCH (09:24)
[2022-10-09] MEDS: CitaloPRAM (CeleXA) 10 MG TABLET PO SCH (09:24)
[2022-10-09] MEDS: LORazepam 1 MG TAB PO PRN ×2 (13:21→21:09)
[2022-10-09 16:37] VITALS: BP 116/57
[2022-10-09] MEDS: OLANZapine 10 MG TAB PO SCH (21:09)
[2022-10-10 07:02] VITALS: BP 138/90
[2022-10-10] MEDS: CitaloPRAM (CeleXA) 10 MG TABLET PO SCH (10:03)
[2022-10-10] MEDS: buPROPion **XL** TABLET 150MG (WELLBUTRIN XL) PO SCH (10:04)
[2022-10-10] MEDS: lamoTRIgine 25MG TAB PO SCH (10:04)
[2022-10-10] MEDS: PROPRANOLOL 60MG LA CAP PO SCH (10:06)
[2022-10-10] MEDS: LORazepam 1 MG TAB PO PRN ×2 (10:08→16:42)
[2022-10-10] MEDS: OLANZapine ORAL DISINTEGRATING TAB 5MG PO PRN (15:26)
[2022-10-10] MEDS: IBUPROFEN 400MG TAB PO PRN (18:36)
[2022-10-10 18:53] VITALS: BP 119/57
[2022-10-10] MEDS: OLANZapine 10 MG TAB PO SCH (20:18)
[2022-10-11 06:05] VITALS: BP 106/62
[2022-10-11] MEDS: CitaloPRAM (CeleXA) 10 MG TABLET PO SCH (09:56)
[2022-10-11] MEDS: lamoTRIgine 25MG TAB PO SCH (09:56)
[2022-10-11] MEDS: buPROPion **XL** TABLET 150MG (WELLBUTRIN XL) PO SCH (09:56)
[2022-10-11] MEDS: PROPRANOLOL 60MG LA CAP PO SCH (09:58)
[2022-10-11] MEDS: OLANZapine ORAL DISINTEGRATING TAB 5MG PO PRN (11:07)
[2022-10-11] MEDS: LORazepam 1 MG TAB PO PRN ×2 (13:33→19:59)
[2022-10-11 18:45] VITALS: BP 141/81
[2022-10-11] MEDS: OLANZapine 10 MG TAB PO SCH (20:00)
[2022-10-12 06:18] VITALS: BP 121/72
[2022-10-12] MEDS: LORazepam 1 MG TAB PO PRN ×2 (10:22→17:51)
[2022-10-12] MEDS: IBUPROFEN 400MG TAB PO PRN (10:22)
[2022-10-12] MEDS: lamoTRIgine 25MG TAB PO SCH (10:22)
[2022-10-12] MEDS: buPROPion **XL** TABLET 150MG (WELLBUTRIN XL) PO SCH (10:22)
[2022-10-12] MEDS: PROPRANOLOL 60MG LA CAP PO SCH (10:23)
[2022-10-12] MEDS: CitaloPRAM (CeleXA) 10 MG TABLET PO SCH (10:23)
[2022-10-12] MEDS: OLANZapine ORAL DISINTEGRATING TAB 5MG PO PRN ×2 (14:25→20:15)
[2022-10-12 18:58] VITALS: BP 147/74
[2022-10-12] MEDS: OLANZapine 10 MG TAB PO SCH (20:17)
[2022-10-13 06:28] VITALS: BP 105/68
[2022-10-13] MEDS: buPROPion **XL** TABLET 150MG (WELLBUTRIN XL) PO SCH (10:11)
[2022-10-13] MEDS: CitaloPRAM (CeleXA) 10 MG TABLET PO SCH (10:11)
[2022-10-13] MEDS: lamoTRIgine 25MG TAB PO SCH (10:13)
[2022-10-13] MEDS: LORazepam 1 MG TAB PO PRN (10:13)
[2022-10-13] MEDS: PROPRANOLOL 60MG LA CAP PO SCH (10:15)
[2022-10-13] MEDS ORDERED: HALOPERIDOL DECANOATE 100 MG/ML 1ML VIAL IM ONE (10:25)
[2022-10-13] MEDS: OLANZapine ORAL DISINTEGRATING TAB 5MG PO PRN ×3 (11:00→21:32)
[2022-10-13 18:03] VITALS: BP 122/79
[2022-10-13] MEDS: OLANZapine 5 MG TAB PO SCH (19:55)
[2022-10-13] MEDS: IBUPROFEN 400MG TAB PO PRN (19:56)
[2022-10-14 07:00] VITALS: BP 106/62
[2022-10-14 09:15] VITALS: BP 130/70
[2022-10-14] MEDS: clonazePAM 0.5 MG TAB PO SCH ×2 (09:19→20:48)
[2022-10-14] MEDS: PILL CUTTER 1 EACH XX PRN (09:19)
[2022-10-14] MEDS: PROPRANOLOL 60MG LA CAP PO SCH (09:19)
[2022-10-14] MEDS: buPROPion **XL** TABLET 150MG (WELLBUTRIN XL) PO SCH (09:20)
[2022-10-14] MEDS: lamoTRIgine 25MG TAB PO SCH (09:20)
[2022-10-14] MEDS: CitaloPRAM (CeleXA) 10 MG TABLET PO SCH (09:20)
[2022-10-14] MEDS: IBUPROFEN 400MG TAB PO PRN ×2 (09:38→17:14)
[2022-10-14] MEDS: OLANZapine ORAL DISINTEGRATING TAB 5MG PO PRN ×3 (11:55→21:41)
[2022-10-14 13:14] LABS: FREE T4 0.81 NG/DL (0.89-1.76); THYROID STIMULATING HORMONE 0.255 uIU/ML (0.55-4.78)
[2022-10-14 16:01] VITALS: BP 121/58
[2022-10-14] MEDS: OLANZapine 5 MG TAB PO SCH (20:48)
[2022-10-15 07:03] VITALS: BP 98/59
[2022-10-15] MEDS: CitaloPRAM (CeleXA) 10 MG TABLET PO SCH (08:36)
[2022-10-15] MEDS: buPROPion **XL** TABLET 150MG (WELLBUTRIN XL) PO SCH (08:37)
[2022-10-15] MEDS: IBUPROFEN 400MG TAB PO PRN (08:37)
[2022-10-15] MEDS: lamoTRIgine 25MG TAB PO SCH (08:37)
[2022-10-15] MEDS: clonazePAM 0.5 MG TAB PO SCH (08:37)
[2022-10-15 08:38] VITALS: BP 109/70
[2022-10-15] MEDS: PROPRANOLOL 60MG LA CAP PO SCH (08:38)
[2022-10-15] MEDS: OLANZapine ORAL DISINTEGRATING TAB 5MG PO PRN (11:26)
[2022-10-15] MEDS ORDERED: OLAN5ZYD PO (11:46)
[2022-10-15] MEDS ORDERED: INDE60CA4 PO (11:46)
[2022-10-15] MEDS ORDERED: TRAZ-252 PO (11:46)
[2022-10-15] MEDS ORDERED: METH25TAB PO (11:46)
[2022-10-15] MEDS ORDERED: HALD100I2 IM (11:46)
[2022-10-15] MEDS ORDERED: BUPR150T12 PO (11:46)
[2022-10-15] MEDS ORDERED: CELE10TA PO (11:46)
[2022-10-15] MEDS ORDERED: HALO5TAB33 PO (11:46)
[2022-10-15] MEDS ORDERED: CLON0.5T2 PO (11:46)
[2022-10-15] MEDS ORDERED: OLAN1TAB16 PO (11:46)
[2022-10-15] MEDS ORDERED: LAMI25TA PO (11:46)
== END 2022-10-15 12:23 | disposition home or self-care (01) | DRG 750 ==
LOC: M ED 09:10 → MERGE 12:41 → M ED INP 12:41 → M PSY 17:34
PROVIDERS: ADMIT Student in an Organized Health Care Education/Training Program; ATTEND Student in an Organized Health Care Education/Training Program
DX: F25.0 Schizoaffective disorder, bipolar type (principal); F12.10 Cannabis abuse, uncomplicated; F10.10 Alcohol abuse, uncomplicated; E02 Subclinical iodine-deficiency hypothyroidism; I10 Essential (primary) hypertension; M32.9 Systemic lupus erythematosus, unspecified; F17.290 Nicotine dependence, other tobacco product, uncomplicated; Z79.899 Other long term (current) drug therapy; Z62.810 Personal history of physical and sexual abuse in childhood; Z88.0 Allergy status to penicillin; Z88.5 Allergy status to narcotic agent; Z88.8 Allergy status to other drugs, medicaments and biological substances; Z91.040 Latex allergy status; Z20.822 Contact with and (suspected) exposure to COVID-19

== ENCOUNTER → 2022-10-18 | Outpatient (REF) ==
[~2022-10-18] MED LIST changes: +CELE10TA PO; +CLON0.5T2 PO; +HALD100I2 IM; +HALO5TAB33 PO; +LAMI25TA PO; +OLAN5ZYD PO; +TRAZ-252 PO; +VITMTA PO
== END ==
LOC: M EMP 11:14
PROVIDERS: ATTEND Family Medicine
DX: Z20.822 Contact with and (suspected) exposure to COVID-19 (principal)

== ENCOUNTER → 2022-10-25 | Outpatient (REF) | LOC: M EMP 13:44 | PROVIDERS: ATTEND Family Medicine | DX: Z20.828 Contact with and (suspected) exposure to other viral communicable diseases (principal) ==

== ENCOUNTER → 2022-11-08 | Outpatient (REF) | LOC: M EMP 11:15 | PROVIDERS: ATTEND Family Medicine | DX: Z11.52 Encounter for screening for COVID-19 (principal) ==

== ENCOUNTER 2022-12-14 09:07 | Inpatient (IN) | payer MEDICAID, OTHER ==
[~2022-12-14] VITALS: Ht 170.2 cm; Wt 103.0 kg
[2022-12-14] MEDS: NICOTINE 14 MG/24 HR TRANSDERMAL TD SCH (09:00)
[2022-12-14 11:29] LABS: HEMATOCRIT 40.8 % (36.0-47.0); HEMOGLOBIN 12.9 g/dl (12.0-15.5); MEAN CORPUSCULAR HEMOGLOBIN 27.7 pg (27.0-33.0); MEAN CORPUSCULAR HGB CONC 31.6 g/dl (32.0-36.5); MEAN CORPUSCULAR VOLUME 87.6 fl (80.0-96.0); PLATELET COUNT, AUTOMATED 383 10^3/uL (150-450); RED BLOOD COUNT 4.66 10^6/uL (4.00-5.40); WHITE BLOOD COUNT 9.9 10^3/uL (4.0-10.0)
[2022-12-14 11:52] LABS: ETHYL ALCOHOL (ETHANOL) < 0.003 % (0.000-0.010)
[2022-12-14 11:54] LABS: ACETAMINOPHEN LEVEL < 2.0 UG/ML (10.0-20.0); ALKALINE PHOSPHATASE 114 U/L (46-116); ALT/SGPT 14 U/L (7.0-40); AST/SGOT 13 U/L (<34); BILIRUBIN,DIRECT 0.2 MG/DL (<0.4); BILIRUBIN,TOTAL 0.4 MG/DL (0.3-1.2); BLOOD UREA NITROGEN 7 MG/DL (9-23); CALCIUM LEVEL 8.2 MG/DL (8.5-10.1); CARBON DIOXIDE LEVEL 28 MMOL/L (20-31); CHLORIDE LEVEL 104 MMOL/L (98-107); GLOMERULAR FILTRATION RATE > 60.0 (>58); GLUCOSE, FASTING 96 MG/DL (60-100); POTASSIUM SERUM 4.1 MMOL/L (3.5-5.1); SALICYLATE LEVEL < 3.0 MG/DL (<30); SODIUM LEVEL 137 MMOL/L (136-145); TOTAL PROTEIN 6.6 G/DL (5.7-8.2)
[2022-12-14 11:56] LABS: THYROID STIMULATING HORMONE 0.046 uIU/ML (0.55-4.78)
[2022-12-14] MEDS ORDERED: MED REC IN PROGRESS XX SCH (13:50)
[2022-12-14] MEDS ORDERED: OLAN1TAB16 PO (14:47)
[2022-12-14 14:50] LABS: BARBITURATES URINE NEGATIVE (NEGATIVE); BENZODIAZEPINES URINE NEGATIVE (NEGATIVE); COCAINE METABOLITE URINE NEGATIVE (NEGATIVE)
[2022-12-14 14:51] LABS: METHADONE URINE NEGATIVE (NEGATIVE); OPIATES URINE NEGATIVE (NEGATIVE); PHENCYCLIDINE URINE NEGATIVE (NEGATIVE)
[2022-12-14 14:53] LABS: AMPHETAMINES LEVEL URINE POSITIVE (NEGATIVE); CANNABINOIDS URINE POSITIVE (NEGATIVE)
[2022-12-14] MEDS ORDERED: CLON0.25 PO (14:55)
[2022-12-14] MEDS ORDERED: MAALOX 30 ML SUSP *UDC PO PRN (15:35)
[2022-12-14] MEDS ORDERED: ACETAMINOPHEN TAB 650MG DOSE (2X325MG) PO PRN (15:35)
[2022-12-14] MEDS ORDERED: traZODone 50 MG TAB PO PRN (15:35)
[2022-12-14] MEDS ORDERED: MOM 30ML SUSPENSION UDC PO PRN (15:35)
[2022-12-14] MEDS ORDERED: HOME MED LIST COMPLETE! XX SCH (15:35)
[2022-12-14] MEDS: OLANZapine ORAL DISINTEGRATING TAB 5MG PO PRN (20:18)
[2022-12-14 22:15] VITALS: BP 110/58; TEMP 98.2; O2SAT 97
[2022-12-15 06:40] VITALS: BP 111/63; TEMP 98.6; O2SAT 97
[2022-12-15] MEDS: NICOTINE 14 MG/24 HR TRANSDERMAL TD SCH (09:00)
[2022-12-15] MEDS: OLANZapine 5 MG TAB PO SCH (09:12)
[2022-12-15] MEDS: CitaloPRAM (CeleXA) 10 MG TABLET PO SCH (09:12)
[2022-12-15] MEDS: MULTIVITAMINS/MINERALS THERAP 1 TAB PO SCH (09:12)
[2022-12-15] MEDS: lamoTRIgine 25MG TAB PO SCH (09:12)
[2022-12-15] MEDS: VITAMIN D 1,000 INTERNATIONAL UNITS TABLET PO SCH (09:12)
[2022-12-15] MEDS: buPROPion **XL** TABLET 150MG (WELLBUTRIN XL) PO SCH (09:12)
[2022-12-15] MEDS: IBUPROFEN 400MG TAB PO PRN (10:22)
[2022-12-15 10:33] LABS: THYROID STIMULATING HORMONE 0.036 uIU/ML (0.55-4.78)
[2022-12-15 10:34] LABS: FREE T4 1.13 NG/DL (0.89-1.76)
[2022-12-15] MEDS: PROPRANOLOL 60MG LA CAP PO SCH (10:49)
[2022-12-15] MEDS: OLANZapine ORAL DISINTEGRATING TAB 5MG PO PRN ×2 (15:32→21:08)
[2022-12-15 16:52] VITALS: BP 109/64; TEMP 98.2; O2SAT 99
[2022-12-15] MEDS: diphenhydrAMINE 25MG CAP PO PRN (23:40)
[2022-12-15] MEDS: traZODone 50 MG TAB PO PRN (23:40)
[2022-12-16] MEDS: NICOTINE 14 MG/24 HR TRANSDERMAL TD SCH (09:00)
[2022-12-16] MEDS: lamoTRIgine 25MG TAB PO SCH (09:47)
[2022-12-16] MEDS: CitaloPRAM (CeleXA) 10 MG TABLET PO SCH (09:47)
[2022-12-16] MEDS: MULTIVITAMINS/MINERALS THERAP 1 TAB PO SCH (09:47)
[2022-12-16] MEDS: buPROPion **XL** TABLET 150MG (WELLBUTRIN XL) PO SCH (09:47)
[2022-12-16 09:48] VITALS: BP 125/86
[2022-12-16] MEDS: OLANZapine 5 MG TAB PO SCH (09:48)
[2022-12-16] MEDS: VITAMIN D 1,000 INTERNATIONAL UNITS TABLET PO SCH (09:49)
[2022-12-16] MEDS: PROPRANOLOL 60MG LA CAP PO SCH (09:49)
[2022-12-16] MEDS: OLANZapine ORAL DISINTEGRATING TAB 5MG PO PRN (17:42)
[2022-12-16 18:59] VITALS: BP 136/80; TEMP 98.1
[2022-12-17 06:12] VITALS: BP 126/72; TEMP 98.7; O2SAT 96
[2022-12-17] MEDS: NICOTINE 14 MG/24 HR TRANSDERMAL TD SCH (09:00)
[2022-12-17] MEDS ORDERED: HALOPERIDOL DECANOATE 100 MG/ML 1ML VIAL IM SCH (09:00)
[2022-12-17 09:48] VITALS: BP 140/90
[2022-12-17] MEDS: PROPRANOLOL 60MG LA CAP PO SCH (09:49)
[2022-12-17] MEDS: CitaloPRAM (CeleXA) 10 MG TABLET PO SCH (09:49)
[2022-12-17] MEDS: buPROPion **XL** TABLET 150MG (WELLBUTRIN XL) PO SCH (09:49)
[2022-12-17] MEDS: OLANZapine 5 MG TAB PO SCH (09:50)
[2022-12-17] MEDS: lamoTRIgine 25MG TAB PO SCH (09:50)
[2022-12-17] MEDS: MULTIVITAMINS/MINERALS THERAP 1 TAB PO SCH (09:50)
[2022-12-17] MEDS: VITAMIN D 1,000 INTERNATIONAL UNITS TABLET PO SCH (09:50)
[2022-12-17] MEDS: OLANZapine ORAL DISINTEGRATING TAB 5MG PO PRN ×2 (11:21→17:33)
[2022-12-17 18:00] VITALS: BP 117/71; TEMP 98
[2022-12-18 07:14] VITALS: BP 101/58; TEMP 98.7; O2SAT 98
[2022-12-18] MEDS: CitaloPRAM (CeleXA) 10 MG TABLET PO SCH (08:31)
[2022-12-18] MEDS: MULTIVITAMINS/MINERALS THERAP 1 TAB PO SCH (08:31)
[2022-12-18] MEDS: VITAMIN D 1,000 INTERNATIONAL UNITS TABLET PO SCH (08:31)
[2022-12-18] MEDS: NICOTINE 14 MG/24 HR TRANSDERMAL TD SCH (08:31)
[2022-12-18] MEDS: lamoTRIgine 25MG TAB PO SCH (08:31)
[2022-12-18] MEDS: OLANZapine 5 MG TAB PO SCH (08:31)
[2022-12-18] MEDS: buPROPion **XL** TABLET 150MG (WELLBUTRIN XL) PO SCH (08:31)
[2022-12-18] MEDS: PROPRANOLOL 60MG LA CAP PO SCH (08:35)
[2022-12-18] MEDS: OLANZapine ORAL DISINTEGRATING TAB 5MG PO PRN ×2 (13:07→20:29)
[2022-12-18 17:07] VITALS: BP 100/56; TEMP 98.8; O2SAT 98
[2022-12-19 07:04] VITALS: BP 112/59; TEMP 99.1; O2SAT 99
[2022-12-19] MEDS: NICOTINE 14 MG/24 HR TRANSDERMAL TD SCH (09:00)
[2022-12-19] MEDS: CitaloPRAM (CeleXA) 20 MG TAB PO SCH (09:33)
[2022-12-19] MEDS: MULTIVITAMINS/MINERALS THERAP 1 TAB PO SCH (09:33)
[2022-12-19] MEDS: buPROPion **XL** TABLET 150MG (WELLBUTRIN XL) PO SCH (09:33)
[2022-12-19] MEDS: OLANZapine 5 MG TAB PO SCH (09:33)
[2022-12-19] MEDS: lamoTRIgine 25MG TAB PO SCH (09:33)
[2022-12-19] MEDS: VITAMIN D 1,000 INTERNATIONAL UNITS TABLET PO SCH (09:33)
[2022-12-19] MEDS: PROPRANOLOL 60MG LA CAP PO SCH (09:34)
[2022-12-19] MEDS: OLANZapine ORAL DISINTEGRATING TAB 5MG PO PRN ×2 (11:30→20:15)
[2022-12-19 17:06] VITALS: BP 110/62; TEMP 98.9; O2SAT 98
[2022-12-19] MEDS: IBUPROFEN 400MG TAB PO PRN (17:45)
[2022-12-19] MEDS: traZODone 50 MG TAB PO PRN (20:15)
[2022-12-19] MEDS: diphenhydrAMINE 25MG CAP PO PRN (23:37)
[2022-12-20 06:39] LABS: FREE T4 0.97 NG/DL (0.89-1.76); THYROID STIMULATING HORMONE 0.028 uIU/ML (0.55-4.78)
[2022-12-20 06:50] VITALS: BP 92/53; TEMP 99; O2SAT 96
[2022-12-20 06:56] LABS: FREE T3 3.4 PG/ML (2.3-4.2)
[2022-12-20] MEDS: NICOTINE 14 MG/24 HR TRANSDERMAL TD SCH (08:58)
[2022-12-20] MEDS: lamoTRIgine 25MG TAB PO SCH (09:01)
[2022-12-20] MEDS: CitaloPRAM (CeleXA) 20 MG TAB PO SCH (09:01)
[2022-12-20] MEDS: buPROPion **XL** TABLET 150MG (WELLBUTRIN XL) PO SCH (09:01)
[2022-12-20] MEDS: MULTIVITAMINS/MINERALS THERAP 1 TAB PO SCH (09:01)
[2022-12-20] MEDS: VITAMIN D 1,000 INTERNATIONAL UNITS TABLET PO SCH (09:01)
[2022-12-20] MEDS: OLANZapine 5 MG TAB PO SCH (09:01)
[2022-12-20] MEDS: PROPRANOLOL 60MG LA CAP PO SCH (09:03)
[2022-12-20] MEDS ORDERED: HALOPERIDOL DECANOATE 100 MG/ML 1ML VIAL IM ONE (10:00)
[2022-12-20] MEDS: OLANZapine ORAL DISINTEGRATING TAB 5MG PO PRN (17:44)
[2022-12-20 18:00] VITALS: BP 122/71; TEMP 97.8
[2022-12-20] MEDS: MIRTAZAPINE 7.5MG PER 1/2 TABLET PO SCH (20:11)
[2022-12-21] MEDS: NICOTINE 14 MG/24 HR TRANSDERMAL TD SCH (09:00)
[2022-12-21] MEDS: lamoTRIgine 25MG TAB PO SCH (09:39)
[2022-12-21] MEDS: buPROPion **XL** TABLET 150MG (WELLBUTRIN XL) PO SCH (09:39)
[2022-12-21] MEDS: MULTIVITAMINS/MINERALS THERAP 1 TAB PO SCH (09:39)
[2022-12-21] MEDS: VITAMIN D 1,000 INTERNATIONAL UNITS TABLET PO SCH (09:39)
[2022-12-21] MEDS: CitaloPRAM (CeleXA) 20 MG TAB PO SCH (09:40)
[2022-12-21] MEDS: OLANZapine 5 MG TAB PO SCH (09:40)
[2022-12-21] MEDS: IBUPROFEN 400MG TAB PO PRN (10:26)
[2022-12-21] MEDS: OLANZapine ORAL DISINTEGRATING TAB 5MG PO PRN ×2 (10:26→16:03)
[2022-12-21] MEDS: atenoloL 50 MG TAB PO SCH (10:58)
[2022-12-21 18:01] VITALS: BP 100/52; TEMP 98.5
[2022-12-21] MEDS: MIRTAZAPINE 7.5MG PER 1/2 TABLET PO SCH (20:59)
[2022-12-22 06:17] VITALS: BP 106/70; TEMP 97.9; O2SAT 92
[2022-12-22 08:36] VITALS: BP 112/79
[2022-12-22 08:38] VITALS: BP 112/79
[2022-12-22] MEDS: atenoloL 50 MG TAB PO SCH (08:38)
[2022-12-22] MEDS: MULTIVITAMINS/MINERALS THERAP 1 TAB PO SCH (08:38)
[2022-12-22] MEDS: buPROPion **XL** TABLET 150MG (WELLBUTRIN XL) PO SCH (08:38)
[2022-12-22] MEDS: lamoTRIgine 25MG TAB PO SCH (08:38)
[2022-12-22] MEDS: NICOTINE 14 MG/24 HR TRANSDERMAL TD SCH (08:38)
[2022-12-22] MEDS: OLANZapine 5 MG TAB PO SCH (08:38)
[2022-12-22] MEDS: VITAMIN D 1,000 INTERNATIONAL UNITS TABLET PO SCH (08:38)
[2022-12-22] MEDS: CitaloPRAM (CeleXA) 20 MG TAB PO SCH (08:38)
[2022-12-22] MEDS: OLANZapine ORAL DISINTEGRATING TAB 5MG PO PRN (09:07)
[2022-12-22] MEDS ORDERED: BUPR150T12 PO (10:52)
[2022-12-22] MEDS ORDERED: OLAN1TAB16 PO (10:52)
[2022-12-22] MEDS ORDERED: HALD100I2 IM (10:52)
[2022-12-22] MEDS ORDERED: CELE20TA PO (10:52)
[2022-12-22] MEDS ORDERED: MIRT-10 PO (10:52)
[2022-12-22] MEDS ORDERED: ATEN50TA2 PO (10:52)
[2022-12-22] MEDS ORDERED: LAMI25TA PO (10:52)
[2022-12-22] MEDS ORDERED: NICO14PA TD (10:52)
== END 2022-12-22 11:38 | disposition home or self-care (01) | DRG 750 ==
LOC: M ED 09:07 → M ED INP 15:31 → M PSY 20:14
PROVIDERS: ADMIT Student in an Organized Health Care Education/Training Program; ATTEND Student in an Organized Health Care Education/Training Program
DX: F25.0 Schizoaffective disorder, bipolar type (principal); Z76.5 Malingerer [conscious simulation]; F12.10 Cannabis abuse, uncomplicated; E02 Subclinical iodine-deficiency hypothyroidism; F17.290 Nicotine dependence, other tobacco product, uncomplicated; Z98.84 Bariatric surgery status; Z83.3 Family history of diabetes mellitus; L97.419 Non-pressure chronic ulcer of right heel and midfoot with unspecified severity; Z20.822 Contact with and (suspected) exposure to COVID-19; Z79.899 Other long term (current) drug therapy; Z88.0 Allergy status to penicillin; Z88.2 Allergy status to sulfonamides; Z88.5 Allergy status to narcotic agent; Z88.8 Allergy status to other drugs, medicaments and biological substances; Z91.040 Latex allergy status; Z62.810 Personal history of physical and sexual abuse in childhood

== ENCOUNTER 2023-01-27 08:59 | Emergency (ER) | payer MEDICAID, OTHER ==
[~2023-01-27] VITALS: Ht 165.1 cm; Wt 103.0 kg
[~2023-01-27 08:59] MED LIST changes: +ATEN50TA2 PO; +CLON0.25 PO; +MIRT-10 PO; +NICO14PA TD
[2023-01-27] MEDS ORDERED: HALO10AM (09:16)
[2023-01-27] MEDS ORDERED: ONDANSETRON 4MG ORAL DISINTEGRATING TAB PO ONE (09:45)
[2023-01-27] MEDS ORDERED: KETOROLAC TROMETHAMINE 10 MG TAB PO ONE (09:45)
[2023-01-27] MEDS ORDERED: DOXYCYCLINE HYCLATE 100MG TABLET PO ONE (09:45)
[2023-01-27] MEDS ORDERED: PROM50TA4 PO (10:23)
[2023-01-27] MEDS ORDERED: DOXY-443 PO (10:23)
[2023-01-27 10:35] VITALS: BP 131/99; TEMP 97.3; O2SAT 97
== END 2023-01-27 10:40 | disposition home or self-care (01) ==
LOC: M ED 08:59
DX: T80.89XA Other complications following infusion, transfusion and therapeutic injection, initial encounter (principal); F41.9 Anxiety disorder, unspecified; F19.10 Other psychoactive substance abuse, uncomplicated; F17.200 Nicotine dependence, unspecified, uncomplicated; F10.10 Alcohol abuse, uncomplicated; J45.909 Unspecified asthma, uncomplicated; G40.909 Epilepsy, unspecified, not intractable, without status epilepticus; M32.9 Systemic lupus erythematosus, unspecified; D64.9 Anemia, unspecified; Z98.84 Bariatric surgery status; Z87.442 Personal history of urinary calculi; Z88.0 Allergy status to penicillin; Z88.2 Allergy status to sulfonamides; Z88.5 Allergy status to narcotic agent; Z91.040 Latex allergy status; Z79.810 Long term (current) use of selective estrogen receptor modulators (SERMs); Z79.899 Other long term (current) drug therapy